=== PATIENT | female | born 1945 | race Caucasian/White ===

== ENCOUNTER 2017-03-19 08:09 | Outpatient (CLI) | payer OTHER ==
[~2017-03-19 08:09] MED LIST: BACL10TA PO; FURO-150 PO; GABA-531 PO; HYDR-1189 PO; LEVO500T20 PO; LIP20 PO; PRED20TA PO; PRO40 PO
== END 2017-03-19 20:48 | disposition home or self-care (01) ==
LOC: SMA 08:09
PROVIDERS: ATTEND Family Medicine
DX: Z12.31 Encounter for screening mammogram for malignant neoplasm of breast (principal)
CPT/HCPCS: G0202

== ENCOUNTER 2018-10-05 07:57 | Outpatient (CLI) | payer OTHER | END 2018-10-05 21:08 | disposition home or self-care (01) | LOC: SMA 07:57 | PROVIDERS: ATTEND Family Medicine | DX: Z12.31 Encounter for screening mammogram for malignant neoplasm of breast (principal) | CPT/HCPCS: 77067 ==

== ENCOUNTER 2019-02-25 16:02 | Inpatient (IN) | payer OTHER ==
[~2019-02-25] VITALS: Ht 154.9 cm; Wt 88.9 kg
[2019-02-25 16:04] VITALS: BP_SYST 157
[2019-02-25] MEDS ORDERED: IPRATROPIUM BROM 0.5 MG/2.5 ML VIAL.NEB (ATROVENT) IH ONE (16:30)
[2019-02-25] MEDS ORDERED: methylPREDNISolone SOD SUCC/PF 62.5 MG/ML VIAL IVP ONE (16:30)
[2019-02-25] MEDS ORDERED: ALBUTEROL SULFATE 0.083% 2.5 MG/3 ML VIAL.NEB IH ONE (16:30)
[2019-02-25] MEDS ORDERED: ALBUTEROL SULFATE 0.083% 2.5 MG/3 ML VIAL.NEB INH ONE (17:08)
[2019-02-25 17:09] LABS: BASOPHILS % (AUTO) 0.5 % (0.0-2.0); EOSINOPHILS % (AUTO) 0.5 % (0.0-4.0); HEMATOCRIT 38.7 % (36-48); HEMOGLOBIN 12.5 g/dL (12.0-16.0); LYMPHOCYTES # (AUTO) 0.9 K/uL (1.0-5.5); LYMPHOCYTES % (AUTO) 13.1 % (20.5-51.5); MEAN CORPUSCULAR HEMOGLOBIN 31 pg (27-31); MEAN CORPUSCULAR HGB CONC 32 % (32-36); MEAN CORPUSCULAR VOLUME 96 fL (79.0-98.0); MONOCYTES # (AUTO) 0.8 K/uL (0.0-1.0); MONOCYTES % (AUTO) 11.5 % (1.7-9.3); NEUTROPHILS % (AUTO) 74.4 % (40.0-70.0); PLATELET COUNT (AUTO) 237 K/uL (130-430); RED BLOOD CELL COUNT(AUTO) 4.05 MIL/uL (4.2-6.2); RED CELL DISTRIBUTION WIDTH 16.2 % (9.0-15.0); WHITE BLOOD COUNT (AUTO) 6.8 K/uL (4.8-10.8)
[2019-02-25 17:12] LABS: ANION GAP 10 (5-15); CALCIUM 9.7 mg/dL (8.4-11.0); CHLORIDE 103 mmol/L (98-107); CREATININE 0.79 mg/dL (0.55-1.30); GLUCOSE 118 mg/dL (70-99); POTASSIUM 3.8 mmol/L (3.5-5.1); SODIUM SERUM 143 mmol/L (136-145); UREA NITROGEN, BLOOD 15 mg/dL (8-21)
[2019-02-25 17:18] LABS: ALANINE AMINOTRANSFERASE 37 U/L (12-78); ALBUMIN 3.8 g/dL (3.4-4.8); ASPARTATE AMINOTRANSFERASE 21 U/L (10-37); TOTAL BILIRUBIN 0.7 mg/dL (0.0-1.0)
[2019-02-25] MEDS ORDERED: FUROSEMIDE 40 MG/4 ML VIAL IVP ONE (17:30)
[2019-02-25] MEDS ORDERED: NITROGLYCERIN 1 INCH (GM) OINT. TP ONE (17:45)
[2019-02-25] MEDS ORDERED: ASPIRIN 81 MG TAB.CHEW PO ONE (17:45)
[2019-02-25] MEDS ORDERED: IOHEXOL 350 mgI/mL, 150 ML INFUS..BTL IV ONE (18:23)
[2019-02-25] MEDS ORDERED: METO25TA6 PO (18:48)
[2019-02-25] MEDS ORDERED: PREG75CA PO (18:53)
[2019-02-25] MEDS ORDERED: HYDROcodone/ACETAMIN 5-325 MG TAB (NORCO/ VICODIN) PO ONE (20:15)
[2019-02-25 20:53] VITALS: BP_SYST 151
[2019-02-25] MEDS ORDERED: POTA10TA15 PO (22:32)
[2019-02-25] MEDS ORDERED: AMLO5TAB4 PO (22:32)
[2019-02-25 23:45] VITALS: BP_SYST 110
[2019-02-26] MEDS ORDERED: cefTRIAXone 1 GM in D5W 50 ML IV SCH (02:30)
[2019-02-26] MEDS ORDERED: ALBUTEROL SULFATE 0.083% 2.5 MG/3 ML VIAL.NEB INH PRN (02:30)
[2019-02-26] MEDS: cefTRIAXone 1 GM in D5W 50 ML IV SCH (05:21)
[2019-02-26] MEDS: methylPREDNISolone SOD SUCC/PF 62.5 MG/ML VIAL IVP SCH ×3 (05:21→21:32)
[2019-02-26] MEDS ORDERED: cefTRIAXone 1 GM IVPB PREMIX 50 ML IV ONE (05:23)
[2019-02-26 08:00] VITALS: BP_SYST 127
[2019-02-26] MEDS: ALBUTEROL SULFATE 0.083% 2.5 MG/3 ML VIAL.NEB INH SCH ×5 (08:27→23:00)
[2019-02-26 09:07] VITALS: BP_SYST 110
[2019-02-26] MEDS ORDERED: ACETAMINOPHEN 325 MG TABLET PO PRN (10:30)
[2019-02-26 11:26] VITALS: BP_SYST 120
[2019-02-26 15:29] VITALS: BP_SYST 138
[2019-02-26] MEDS ORDERED: ENOXAPARIN SODIUM 40 MG/0.4 ML SYRINGE SUBCUT ONE (16:30)
[2019-02-26] MEDS ORDERED: IPRATROPIUM/ALBUTEROL SULFATE 3 ML AMPUL.NEB (DUONEB) INH PRN (16:30)
[2019-02-26] MEDS: HYDROcodone/ACETAMIN 5-325 MG TAB (NORCO/ VICODIN) PO PRN (16:55)
[2019-02-26] MEDS: IPRATROPIUM BROM 0.5 MG/2.5 ML VIAL.NEB (ATROVENT) INH SCH ×2 (19:41→23:00)
[2019-02-26 20:00] VITALS: BP_SYST 164
[2019-02-26] MEDS: METOPROLOL TARTRATE 25 MG TABLET PO SCH (21:29)
[2019-02-27 00:30] VITALS: BP_SYST 160
[2019-02-27] MEDS: HYDROcodone/ACETAMIN 5-325 MG TAB (NORCO/ VICODIN) PO PRN ×2 (02:06→08:56)
[2019-02-27] MEDS: cefTRIAXone 1 GM in D5W 50 ML IV SCH (02:07)
[2019-02-27] MEDS: IPRATROPIUM BROM 0.5 MG/2.5 ML VIAL.NEB (ATROVENT) INH SCH ×3 (03:00→15:27)
[2019-02-27] MEDS: ALBUTEROL SULFATE 0.083% 2.5 MG/3 ML VIAL.NEB INH SCH ×3 (03:00→15:27)
[2019-02-27] MEDS: methylPREDNISolone SOD SUCC/PF 62.5 MG/ML VIAL IVP SCH (05:24)
[2019-02-27 07:34] LABS: ANION GAP 6 (5-15); CALCIUM 9.5 mg/dL (8.4-11.0); CHLORIDE 104 mmol/L (98-107); CREATININE 0.77 mg/dL (0.55-1.30); GLUCOSE 149 mg/dL (70-99); SODIUM SERUM 142 mmol/L (136-145); UREA NITROGEN, BLOOD 19 mg/dL (8-21)
[2019-02-27 07:37] LABS: BASOPHILS % (AUTO) 0.2 % (0.0-2.0); HEMATOCRIT 36.9 % (36-48); HEMOGLOBIN 11.8 g/dL (12.0-16.0); LYMPHOCYTES # (AUTO) 0.5 K/uL (1.0-5.5); LYMPHOCYTES % (AUTO) 4.2 % (20.5-51.5); MEAN CORPUSCULAR HEMOGLOBIN 31 pg (27-31); MEAN CORPUSCULAR HGB CONC 32 % (32-36); MEAN CORPUSCULAR VOLUME 96 fL (79.0-98.0); MONOCYTES # (AUTO) 0.9 K/uL (0.0-1.0); MONOCYTES % (AUTO) 7.2 % (1.7-9.3); NEUTROPHILS # (AUTO) 11.1 K/uL (1.8-7.7); PLATELET COUNT (AUTO) 247 K/uL (130-430); RED BLOOD CELL COUNT(AUTO) 3.84 MIL/uL (4.2-6.2); RED CELL DISTRIBUTION WIDTH 16.4 % (9.0-15.0); WHITE BLOOD COUNT (AUTO) 12.6 K/uL (4.8-10.8)
[2019-02-27 08:00] VITALS: BP_SYST 147
[2019-02-27 08:39] LABS: NEUTROPHILS % (AUTO) 88.4 % (40.0-70.0)
[2019-02-27] MEDS: METOPROLOL TARTRATE 25 MG TABLET PO SCH (08:57)
[2019-02-27] MEDS ORDERED: POTASSIUM CHLORIDE 10 MEQ TAB.PRT.SR PO SCH (09:00)
[2019-02-27] MEDS ORDERED: FUROSEMIDE 20 MG TABLET PO SCH (09:00)
[2019-02-27] MEDS ORDERED: ENOXAPARIN SODIUM 40 MG/0.4 ML SYRINGE SUBCUT SCH (09:00)
[2019-02-27] MEDS ORDERED: amLODIPine BESYLATE 5 MG TABLET PO SCH (09:00)
[2019-02-27] MEDS ORDERED: BUDE6HFA INH (10:34)
[2019-02-27] MEDS ORDERED: DOXY100T2 PO (10:34)
[2019-02-27] MEDS ORDERED: ALBMDI INH (10:36)
[2019-02-27 11:17] VITALS: BP_SYST 147
[2019-02-28] MEDS ORDERED: PREDNISONE 20 MG TABLET PO SCH (08:00)
== END 2019-02-27 11:44 | disposition home or self-care (01) | DRG 189 ==
LOC: SED 16:02 → STU 20:25
PROVIDERS: ADMIT Internal Medicine Hospice and Palliative Medicine; ATTEND Internal Medicine Hospice and Palliative Medicine
DX: J96.20 Acute and chronic respiratory failure, unspecified whether with hypoxia or hypercapnia (principal); J44.1 Chronic obstructive pulmonary disease with (acute) exacerbation; E66.01 Morbid (severe) obesity due to excess calories; E78.5 Hyperlipidemia, unspecified; I11.0 Hypertensive heart disease with heart failure; I50.9 Heart failure, unspecified; J61 Pneumoconiosis due to asbestos and other mineral fibers; M35.3 Polymyalgia rheumatica; Z79.52 Long term (current) use of systemic steroids; Z83.3 Family history of diabetes mellitus; Z85.41 Personal history of malignant neoplasm of cervix uteri; Z86.718 Personal history of other venous thrombosis and embolism; Z87.891 Personal history of nicotine dependence; Z90.710 Acquired absence of both cervix and uterus; Z99.81 Dependence on supplemental oxygen; Z88.1 Allergy status to other antibiotic agents; Z79.899 Other long term (current) drug therapy; Z68.37 Body mass index [BMI] 37.0-37.9, adult
CPT/HCPCS: 36415; 36600; 71045; 71275; 80048; 80053; 82803-TC; 83880; 84484; 85025; 85379; 93005; 93970; 94640; 94760; 96374; 96375; 99285; G0378; J0696; J1650; J1940; J2930; J7060; J7613; Q9967

== ENCOUNTER 2019-06-28 13:06 | Inpatient (IN) | payer OTHER ==
[~2019-06-28] VITALS: Ht 154.9 cm; Wt 86.6 kg
[~2019-06-28 13:06] MED LIST changes: +ALBMDI INH; +AMLO5TAB4 PO; +APIX5TAB4 PO; -BACL10TA PO; +BUDE6HFA INH; +DOXY100T2 PO; -GABA-531 PO; +HYDR-4272 PO; -LEVO500T20 PO; +LEVO750T45 PO; +LIP40 PO; +METO25TA6 PO; +POTA10TA15 PO; +PRED5TAB PO; +PREG75CA PO; +SPIRIVA INH
[2019-06-28 13:24] VITALS: BP_SYST 152
[2019-06-28 13:41] LABS: BASOPHILS # (AUTO) 0.1 K/uL (0.0-0.2); BASOPHILS % (AUTO) 0.6 % (0.0-2.0); EOSINOPHILS % (AUTO) 0.1 % (0.0-4.0); HEMATOCRIT 37.7 % (36-48); HEMOGLOBIN 12.3 g/dL (12.0-16.0); LYMPHOCYTES # (AUTO) 0.8 K/uL (1.0-5.5); LYMPHOCYTES % (AUTO) 7.7 % (20.5-51.5); MEAN CORPUSCULAR HEMOGLOBIN 32 pg (27-31); MEAN CORPUSCULAR HGB CONC 33 % (32-36); MEAN CORPUSCULAR VOLUME 98 fL (79.0-98.0); MONOCYTES # (AUTO) 0.8 K/uL (0.0-1.0); MONOCYTES % (AUTO) 7.4 % (1.7-9.3); NEUTROPHILS # (AUTO) 9.1 K/uL (1.8-7.7); NEUTROPHILS % (AUTO) 84.2 % (40.0-70.0); PLATELET COUNT (AUTO) 297 K/uL (130-430); RED BLOOD CELL COUNT(AUTO) 3.84 MIL/uL (4.2-6.2); RED CELL DISTRIBUTION WIDTH 16.4 % (9.0-15.0); WHITE BLOOD COUNT (AUTO) 10.8 K/uL (4.8-10.8)
[2019-06-28 13:43] LABS: ANION GAP 6 (5-15); CALCIUM 9.3 mg/dL (8.4-11.0); CHLORIDE 103 mmol/L (98-107); GLUCOSE 149 mg/dL (70-99); POTASSIUM 3.9 mmol/L (3.5-5.1); SODIUM SERUM 139 mmol/L (136-145); UREA NITROGEN, BLOOD 19 mg/dL (8-21)
[2019-06-28] MEDS ORDERED: DILTIAZEM HCL 25 MG/5 ML VIAL IVP ONE ×2 (13:45→14:30)
[2019-06-28 13:49] LABS: ALANINE AMINOTRANSFERASE 135 U/L (12-78); ALBUMIN 3.7 g/dL (3.4-4.8); ASPARTATE AMINOTRANSFERASE 78 U/L (10-37); TOTAL BILIRUBIN 0.6 mg/dL (0.0-1.0)
[2019-06-28 15:19] LABS: BILIRUBIN,URINE NEGATIVE (NEGATIVE); BLOOD, URINE NEGATIVE (NEGATIVE); CLARITY/URINE CLEAR (CLEAR); COLOR,URINE YELLOW (YELLOW); GLUCOSE,URINE NEGATIVE (NEGATIVE); KETONES,URINE NEGATIVE (NEGATIVE); LEUKOCYTE ESTERASE ,URINE NEGATIVE (NEGATIVE); NITRITE, URINE NEGATIVE (NEGATIVE); PH,URINE 6.5 (5.0-8.0); PROTEIN URINE NEGATIVE (NEGATIVE); UROBILINOGEN,URINE 0.2 (0.2-1.0)
[2019-06-28 16:02] VITALS: BP_SYST 151
[2019-06-28] MEDS ORDERED: FUROSEMIDE 20 MG/2 ML VIAL IVP ONE (17:30)
[2019-06-28] MEDS ORDERED: IPRATROPIUM BROM 0.5 MG/2.5 ML VIAL.NEB (ATROVENT) INH PRN (17:30)
[2019-06-28] MEDS ORDERED: methylPREDNISolone SOD SUCC 40 MG/ML VIAL IVP ONE (17:30)
[2019-06-28] MEDS ORDERED: ALBUTEROL SULFATE 0.083% 2.5 MG/3 ML VIAL.NEB INH PRN (17:30)
[2019-06-28] MEDS: DILTIAZEM HCL 25 MG/5 ML VIAL IVP PRN (18:06)
[2019-06-28 18:57] VITALS: BP_SYST 151
[2019-06-28] MEDS: ALBUTEROL SULFATE 0.083% 2.5 MG/3 ML VIAL.NEB INH SCH (19:38)
[2019-06-28] MEDS: IPRATROPIUM BROM 0.5 MG/2.5 ML VIAL.NEB (ATROVENT) INH SCH (19:38)
[2019-06-28] MEDS: METOPROLOL TARTRATE 25 MG TABLET PO SCH (21:00)
[2019-06-28] MEDS: methylPREDNISolone SOD SUCC 40 MG/ML VIAL IVP SCH (21:00)
[2019-06-28] MEDS: FUROSEMIDE 20 MG/2 ML VIAL IVP SCH (22:49)
[2019-06-28 23:05] VITALS: BP_SYST 166
[2019-06-29] VITALS: BP_SYST 152
[2019-06-29] MEDS: DILTIAZEM HCL 25 MG/5 ML VIAL IVP PRN ×2 (03:43→09:05)
[2019-06-29 04:00] VITALS: BP_SYST 99
[2019-06-29] MEDS: IPRATROPIUM BROM 0.5 MG/2.5 ML VIAL.NEB (ATROVENT) INH SCH ×3 (07:51→19:42)
[2019-06-29] MEDS: ALBUTEROL SULFATE 0.083% 2.5 MG/3 ML VIAL.NEB INH SCH ×2 (07:51→11:17)
[2019-06-29 07:54] VITALS: BP_SYST 114
[2019-06-29] MEDS: PREGABALIN 75 MG CAPSULE (LYRICA) PO SCH (08:22)
[2019-06-29] MEDS: METOPROLOL TARTRATE 25 MG TABLET PO SCH ×2 (08:22→21:20)
[2019-06-29] MEDS: ATORVASTATIN 20 MG TABLET PO SCH (08:22)
[2019-06-29] MEDS: PANTOPRAZOLE SODIUM 40 MG TAB PO SCH (08:22)
[2019-06-29] MEDS: POTASSIUM CHLORIDE 10 MEQ TAB.PRT.SR PO SCH (08:23)
[2019-06-29] MEDS: methylPREDNISolone SOD SUCC 40 MG/ML VIAL IVP SCH ×2 (08:23→21:21)
[2019-06-29] MEDS: FUROSEMIDE 20 MG/2 ML VIAL IVP SCH ×2 (08:23→21:21)
[2019-06-29] MEDS ORDERED: DILTIAZEM HCL 25 MG/5 ML VIAL IVP ONE (09:15)
[2019-06-29] MEDS: HYDROcodone/ACETAMIN 5-325 MG TAB (NORCO/ VICODIN) PO PRN ×2 (10:41→16:31)
[2019-06-29] MEDS ORDERED: APIXABAN 2.5 MG TABLET PO ONE (12:15)
[2019-06-29] MEDS ORDERED: DILTIAZEM HCL 60 MG TABLET PO ONE (12:15)
[2019-06-29 12:42] VITALS: BP_SYST 133
[2019-06-29 16:09] VITALS: BP_SYST 119
[2019-06-29] MEDS: LevALBUTEROL HCL 1.25 MG/0.5 ML *CONC.* VIAL.NEB (XOPENEX CONC.) INH SCH (19:43)
[2019-06-29 20:00] VITALS: BP_SYST 124
[2019-06-29] MEDS: APIXABAN 2.5 MG TABLET PO SCH (21:17)
[2019-06-29] MEDS: DILTIAZEM HCL 60 MG TABLET PO SCH (21:19)
[2019-06-30] VITALS: BP_SYST 146
[2019-06-30] MEDS: IPRATROPIUM BROM 0.5 MG/2.5 ML VIAL.NEB (ATROVENT) INH SCH ×4 (01:00→19:26)
[2019-06-30] MEDS: LevALBUTEROL HCL 1.25 MG/0.5 ML *CONC.* VIAL.NEB (XOPENEX CONC.) INH SCH ×4 (01:00→19:26)
[2019-06-30] MEDS: HYDROcodone/ACETAMIN 5-325 MG TAB (NORCO/ VICODIN) PO PRN ×3 (01:10→16:30)
[2019-06-30] MEDS: DILTIAZEM HCL 60 MG TABLET PO SCH ×3 (06:14→21:04)
[2019-06-30 07:26] LABS: BASOPHILS % (AUTO) 0.3 % (0.0-2.0); HEMATOCRIT 37.2 % (36-48); HEMOGLOBIN 12.2 g/dL (12.0-16.0); LYMPHOCYTES # (AUTO) 0.5 K/uL (1.0-5.5); LYMPHOCYTES % (AUTO) 3.6 % (20.5-51.5); MEAN CORPUSCULAR HEMOGLOBIN 32 pg (27-31); MEAN CORPUSCULAR HGB CONC 33 % (32-36); MEAN CORPUSCULAR VOLUME 99 fL (79.0-98.0); MONOCYTES # (AUTO) 0.9 K/uL (0.0-1.0); NEUTROPHILS # (AUTO) 11.3 K/uL (1.8-7.7); NEUTROPHILS % (AUTO) 89.1 % (40.0-70.0); PLATELET COUNT (AUTO) 288 K/uL (130-430); RED BLOOD CELL COUNT(AUTO) 3.78 MIL/uL (4.2-6.2); RED CELL DISTRIBUTION WIDTH 16.1 % (9.0-15.0); WHITE BLOOD COUNT (AUTO) 12.7 K/uL (4.8-10.8)
[2019-06-30 07:44] LABS: ANION GAP 6 (5-15); CHLORIDE 98 mmol/L (98-107); CREATININE 1.01 mg/dL (0.55-1.30); GLUCOSE 199 mg/dL (70-99); POTASSIUM 4.1 mmol/L (3.5-5.1); SODIUM SERUM 138 mmol/L (136-145); UREA NITROGEN, BLOOD 30 mg/dL (8-21)
[2019-06-30 09:56] VITALS: BP_SYST 152
[2019-06-30] MEDS: ATORVASTATIN 20 MG TABLET PO SCH (10:02)
[2019-06-30] MEDS: APIXABAN 2.5 MG TABLET PO SCH ×2 (10:03→20:53)
[2019-06-30] MEDS: POTASSIUM CHLORIDE 10 MEQ TAB.PRT.SR PO SCH (10:03)
[2019-06-30] MEDS: PANTOPRAZOLE SODIUM 40 MG TAB PO SCH (10:03)
[2019-06-30] MEDS: PREGABALIN 75 MG CAPSULE (LYRICA) PO SCH (10:03)
[2019-06-30] MEDS: METOPROLOL TARTRATE 25 MG TABLET PO SCH ×2 (10:03→20:53)
[2019-06-30] MEDS: methylPREDNISolone SOD SUCC 40 MG/ML VIAL IVP SCH ×2 (10:04→20:55)
[2019-06-30] MEDS: FUROSEMIDE 20 MG/2 ML VIAL IVP SCH ×2 (10:04→20:55)
[2019-06-30 11:23] VITALS: BP_SYST 137
[2019-06-30 15:55] VITALS: BP_SYST 116
[2019-06-30 20:00] VITALS: BP_SYST 136
[2019-07-01 00:17] VITALS: BP_SYST 132
[2019-07-01] MEDS: IPRATROPIUM BROM 0.5 MG/2.5 ML VIAL.NEB (ATROVENT) INH SCH ×4 (00:44→19:00)
[2019-07-01] MEDS: LevALBUTEROL HCL 1.25 MG/0.5 ML *CONC.* VIAL.NEB (XOPENEX CONC.) INH SCH ×4 (00:45→19:00)
[2019-07-01] MEDS: DILTIAZEM HCL 60 MG TABLET PO SCH ×3 (06:04→22:00)
[2019-07-01] MEDS: HYDROcodone/ACETAMIN 5-325 MG TAB (NORCO/ VICODIN) PO PRN ×2 (06:34→15:00)
[2019-07-01 07:46] LABS: ANION GAP 4 (5-15); CALCIUM 8.9 mg/dL (8.4-11.0); CHLORIDE 100 mmol/L (98-107); CREATININE 0.92 mg/dL (0.55-1.30); GLUCOSE 210 mg/dL (70-99); POTASSIUM 4.3 mmol/L (3.5-5.1); SODIUM SERUM 139 mmol/L (136-145); UREA NITROGEN, BLOOD 28 mg/dL (8-21)
[2019-07-01 08:20] VITALS: BP_SYST 120
[2019-07-01] MEDS: POTASSIUM CHLORIDE 10 MEQ TAB.PRT.SR PO SCH (09:14)
[2019-07-01] MEDS: methylPREDNISolone SOD SUCC 40 MG/ML VIAL IVP SCH ×2 (09:14→20:25)
[2019-07-01] MEDS: FUROSEMIDE 20 MG/2 ML VIAL IVP SCH ×2 (09:14→20:24)
[2019-07-01] MEDS: ATORVASTATIN 20 MG TABLET PO SCH (09:15)
[2019-07-01] MEDS: METOPROLOL TARTRATE 25 MG TABLET PO SCH ×2 (09:15→20:25)
[2019-07-01] MEDS: PREGABALIN 75 MG CAPSULE (LYRICA) PO SCH (09:15)
[2019-07-01] MEDS: PANTOPRAZOLE SODIUM 40 MG TAB PO SCH (09:15)
[2019-07-01] MEDS: APIXABAN 2.5 MG TABLET PO SCH ×2 (09:16→20:26)
[2019-07-01 12:00] VITALS: BP_SYST 114
[2019-07-01 12:08] VITALS: BP_SYST 114
[2019-07-01] MEDS ORDERED: NYSTATIN 500,000 UNITS/5 ML UDC PO ONE (15:30)
[2019-07-01] MEDS ORDERED: FLUCONAZOLE 100 mg/ NS 50 ML IV SCH (16:00)
[2019-07-01] MEDS: NYSTATIN 500,000 UNITS/5 ML UDC PO SCH (17:30)
[2019-07-01 17:53] VITALS: BP_SYST 125
[2019-07-01 19:56] VITALS: BP_SYST 141
[2019-07-02] VITALS: BP_SYST 155
[2019-07-02] MEDS: LevALBUTEROL HCL 1.25 MG/0.5 ML *CONC.* VIAL.NEB (XOPENEX CONC.) INH SCH ×2 (01:00→07:00)
[2019-07-02] MEDS: IPRATROPIUM BROM 0.5 MG/2.5 ML VIAL.NEB (ATROVENT) INH SCH ×2 (01:00→07:00)
[2019-07-02] MEDS ORDERED: HYDROcodone/ACETAMIN 5-325 MG TAB (NORCO/ VICODIN) PO SCH (02:00)
[2019-07-02] MEDS: NYSTATIN 500,000 UNITS/5 ML UDC PO SCH ×3 (05:57→12:05)
[2019-07-02] MEDS: DILTIAZEM HCL 60 MG TABLET PO SCH ×2 (05:58→14:14)
[2019-07-02 07:37] LABS: ANION GAP 7 (5-15); CALCIUM 8.1 mg/dL (8.4-11.0); CHLORIDE 97 mmol/L (98-107); GLUCOSE 191 mg/dL (70-99); POTASSIUM 4.6 mmol/L (3.5-5.1); SODIUM SERUM 137 mmol/L (136-145); UREA NITROGEN, BLOOD 29 mg/dL (8-21)
[2019-07-02 08:00] VITALS: BP_SYST 123
[2019-07-02] MEDS: methylPREDNISolone SOD SUCC 40 MG/ML VIAL IVP SCH (08:23)
[2019-07-02] MEDS: PREGABALIN 75 MG CAPSULE (LYRICA) PO SCH (08:24)
[2019-07-02] MEDS: PANTOPRAZOLE SODIUM 40 MG TAB PO SCH (08:24)
[2019-07-02] MEDS: ATORVASTATIN 20 MG TABLET PO SCH (08:24)
[2019-07-02] MEDS: POTASSIUM CHLORIDE 10 MEQ TAB.PRT.SR PO SCH (08:24)
[2019-07-02] MEDS: FUROSEMIDE 20 MG/2 ML VIAL IVP SCH (08:24)
[2019-07-02] MEDS: METOPROLOL TARTRATE 25 MG TABLET PO SCH (08:25)
[2019-07-02] MEDS: APIXABAN 2.5 MG TABLET PO SCH (08:26)
[2019-07-02] MEDS ORDERED: AMOX-426 PO (09:35)
[2019-07-02] MEDS ORDERED: PRED20TA PO (09:35)
[2019-07-02] MEDS: HYDROcodone/ACETAMIN 5-325 MG TAB (NORCO/ VICODIN) PO PRN (12:10)
[2019-07-02 14:14] VITALS: BP_SYST 135
[2019-07-02] MEDS ORDERED: FLUC150T PO (14:57)
[2019-07-02] MEDS ORDERED: DILT180C67 PO (14:57)
[2019-07-02 15:11] VITALS: BP_SYST 135
[2019-07-02 16:00] VITALS: BP_SYST 135
== END 2019-07-02 16:47 | disposition home or self-care (01) | DRG 196 ==
LOC: SED 13:06 → STU 15:19 → MERGE 15:19 → STU 16:00
PROVIDERS: ADMIT Internal Medicine Hospice and Palliative Medicine; ATTEND Internal Medicine Hospice and Palliative Medicine
DX: J61 Pneumoconiosis due to asbestos and other mineral fibers (principal); J96.21 Acute and chronic respiratory failure with hypoxia; B37.0 Candidal stomatitis; J44.1 Chronic obstructive pulmonary disease with (acute) exacerbation; I48.19 Other persistent atrial fibrillation; I50.30 Unspecified diastolic (congestive) heart failure; I11.0 Hypertensive heart disease with heart failure; E66.9 Obesity, unspecified; E78.5 Hyperlipidemia, unspecified; I87.2 Venous insufficiency (chronic) (peripheral); M35.3 Polymyalgia rheumatica; Z77.090 Contact with and (suspected) exposure to asbestos; Z79.52 Long term (current) use of systemic steroids; Z83.3 Family history of diabetes mellitus; Z85.41 Personal history of malignant neoplasm of cervix uteri; Z86.718 Personal history of other venous thrombosis and embolism; Z87.891 Personal history of nicotine dependence; Z90.710 Acquired absence of both cervix and uterus; Z99.81 Dependence on supplemental oxygen; Z68.36 Body mass index [BMI] 36.0-36.9, adult; Z88.1 Allergy status to other antibiotic agents; Z79.899 Other long term (current) drug therapy
CPT/HCPCS: 36415; 36600; 71045; 80048; 80053; 81003; 82550-TC; 82803-TC; 83880; 84484; 85025; 93005; 94640; 94760; 96374; 96376; 99285; G0378; J1030; J1450; J1940; J3490; J7612; J7613

== ENCOUNTER 2019-07-30 10:46 | Inpatient (IN) | payer OTHER ==
[~2019-07-30] VITALS: Ht 154.9 cm; Wt 86.2 kg
[2019-07-30 10:46] VITALS: BP_SYST 148
[~2019-07-30 10:46] MED LIST changes: +AMOX-426 PO; +DILT180C67 PO; +FLUC150T PO; -LEVO750T45 PO; -PRED5TAB PO
--- NOTE | 2019-07-30 10:57 | NUR ---
BROUGHT BACK TO BED #4, PLACED IN ROOM, REPORT GIVEN TO MATIAS
--- NOTE | 2019-07-30 10:58 | NUR ---
Patient arrived in the ED c/o shortness of breath with dizziness that's progressively getting worse. Denied any recent trauma or falls. Denied any chest pain. Patient is alert and oriented x4, BLL diminished lung sounds, speaking in full sentences, and ambulating with a walker. Patient is on Oxygen 2LPM. VSS, pain level 0/10. Informed of the wait time. Instructed to notify ED staff for any changes in condition or worsening of symptoms. Patient verbalized understanding.
--- NOTE | 2019-07-30 11:00 | NUR ---
ECG done at bedside as ordered by Dr. Hilton. Patient tolerated the procedure well. Report given to .
--- NOTE | 2019-07-30 11:05 | NUR ---
ER Dr. Hilton at bedside examining patient.
[2019-07-30] MEDS ORDERED: NS 500 ML IV ONE (11:15)
[2019-07-30] MEDS ORDERED: IPRATROPIUM/ALBUTEROL SULFATE 3 ML AMPUL.NEB (DUONEB) INH ONE (11:15)
[2019-07-30] MEDS ORDERED: PIPERACILLIN/TAZO 3.375 GM in NS 50 ML IV ONE (11:45)
[2019-07-30 11:54] LABS: BILIRUBIN,URINE NEGATIVE (NEGATIVE); BLOOD, URINE NEGATIVE (NEGATIVE); CLARITY/URINE CLEAR (CLEAR); COLOR,URINE YELLOW (YELLOW); GLUCOSE,URINE NEGATIVE (NEGATIVE); KETONES,URINE NEGATIVE (NEGATIVE); LEUKOCYTE ESTERASE ,URINE NEGATIVE (NEGATIVE); NITRITE, URINE NEGATIVE (NEGATIVE); PH,URINE 7.5 (5.0-8.0); PROTEIN URINE NEGATIVE (NEGATIVE); UROBILINOGEN,URINE 0.2 (0.2-1.0)
[2019-07-30] MEDS ORDERED: PIPERACILLIN/TAZOBACTAM 3.375 GM/VIAL (ZOSYN) IV ONE (12:10)
[2019-07-30 12:11] LABS: BASOPHILS # (AUTO) 0.1 K/uL (0.0-0.2); BASOPHILS % (AUTO) 0.8 % (0.0-2.0); EOSINOPHILS % (AUTO) 0.3 % (0.0-4.0); HEMATOCRIT 38.5 % (36-48); HEMOGLOBIN 12.7 g/dL (12.0-16.0); LYMPHOCYTES # (AUTO) 0.6 K/uL (1.0-5.5); LYMPHOCYTES % (AUTO) 5.8 % (20.5-51.5); MEAN CORPUSCULAR HEMOGLOBIN 32 pg (27-31); MEAN CORPUSCULAR HGB CONC 33 % (32-36); MEAN CORPUSCULAR VOLUME 98 fL (79.0-98.0); MONOCYTES # (AUTO) 0.6 K/uL (0.0-1.0); NEUTROPHILS % (AUTO) 87.1 % (40.0-70.0); PLATELET COUNT (AUTO) 303 K/uL (130-430); RED BLOOD CELL COUNT(AUTO) 3.93 MIL/uL (4.2-6.2); WHITE BLOOD COUNT (AUTO) 10.3 K/uL (4.8-10.8)
[2019-07-30 12:23] LABS: ANION GAP 5 (5-15); CALCIUM 8.3 mg/dL (8.4-11.0); CHLORIDE 97 mmol/L (98-107); CREATININE 0.83 mg/dL (0.55-1.30); GLUCOSE 168 mg/dL (70-99); POTASSIUM 3.9 mmol/L (3.5-5.1); SODIUM SERUM 137 mmol/L (136-145); UREA NITROGEN, BLOOD 12 mg/dL (8-21)
[2019-07-30 12:32] LABS: ALANINE AMINOTRANSFERASE 49 U/L (12-78); ALBUMIN 3.8 g/dL (3.4-4.8); ASPARTATE AMINOTRANSFERASE 27 U/L (10-37); TOTAL BILIRUBIN 0.6 mg/dL (0.0-1.0)
[2019-07-30 12:34] LABS: PROTHROMBIN TIME 10.2 SECS (9.5-12.5)
--- NOTE | 2019-07-30 14:30 | NUR ---
Patient stated there are no medication changes since the last hospitalization.
[2019-07-30] MEDS ORDERED: NACL 0.9% 2,200 ML IV ONE (14:45)
--- NOTE | 2019-07-30 15:56 | NUR ---
ADMISSION NOTE Received patient from ER via anabell, received report from DEEPAK TOLEDO. Patient admitted with diagnosis of COPD EXACERBATION. Patient oriented to hospital routine, call light, toileting and safety-patient verbalized understanding.
[2019-07-30] MEDS ORDERED: IPRATROPIUM BROM 0.5 MG/2.5 ML VIAL.NEB (ATROVENT) INH PRN (16:00)
[2019-07-30] MEDS ORDERED: LevALBUTEROL HCL 1.25 MG/0.5 ML *CONC.* VIAL.NEB (XOPENEX CONC.) INH PRN (16:00)
--- NOTE | 2019-07-30 16:00 | NUR ---
Patient will be admitted to care of Dr. Amaya. Admitted to Telemetry unit. Will go to room 135. Belongings list completed. Complete and up to date summary report printed. SBAR report given to TRE Palacios at bedside with opportunity for questions.
--- NOTE | 2019-07-30 16:00 | NUR ---
Initial Notes: Received patient in the room from Er. Initial assessment done. No sob this time. On o2 2l/nc,good saturation. Iv saline lock at right forearm in place.On telemetry,
[2019-07-30 16:17] VITALS: BP_SYST 160
[2019-07-30 16:29] VITALS: BP_SYST 148
[2019-07-30 16:33] VITALS: BP_SYST 148
[2019-07-30] MEDS: LEVOFLOXACIN 500 MG/D5W 100 ML IV SCH (16:45)
--- NOTE | 2019-07-30 16:45 | NUR ---
Iv Levaquin: Iv Levaquin given as ordered,with no problem.
--- NOTE | 2019-07-30 18:40 | NUR ---
closing notes: Not in any distress. Call light with in reach. Bed locked at lowest position.Safety measures rendered. Continue to monitor.
[2019-07-30] MEDS: LevALBUTEROL HCL 1.25 MG/0.5 ML *CONC.* VIAL.NEB (XOPENEX CONC.) INH SCH (19:41)
[2019-07-30] MEDS: IPRATROPIUM BROM 0.5 MG/2.5 ML VIAL.NEB (ATROVENT) INH SCH (19:41)
[2019-07-30 20:00] VITALS: BP_SYST 127
--- NOTE | 2019-07-30 21:42 | NUR ---
CONSULTATION PAGED/CALLED Reason for Consultation: COPD EXACERBATION Person Who was Notified: DOCTOR TANI IS AWARE AND SEEN THE PT Consulting Physician: TANI Insurance Claim Approver Specialty: Ordering Physician: RENITA
[2019-07-30] MEDS: APIXABAN 2.5 MG TABLET PO SCH (22:08)
[2019-07-30] MEDS: METOPROLOL TARTRATE 25 MG TABLET PO SCH (22:12)
[2019-07-30] MEDS: methylPREDNISolone SOD SUCC/PF 62.5 MG/ML VIAL IVP SCH (22:13)
[2019-07-30] MEDS: FUROSEMIDE 40 MG/4 ML VIAL IVP SCH (22:14)
[2019-07-31] MEDS: LevALBUTEROL HCL 1.25 MG/0.5 ML *CONC.* VIAL.NEB (XOPENEX CONC.) INH SCH ×4 (00:47→19:00)
[2019-07-31] MEDS: IPRATROPIUM BROM 0.5 MG/2.5 ML VIAL.NEB (ATROVENT) INH SCH ×4 (00:47→19:00)
--- NOTE | 2019-07-31 06:00 | NUR ---
PT REMAIN ON O2 2 LITERS N/C .PT STILL REMAIN ON 2 LITER O2 N/C .
[2019-07-31 06:34] LABS: BASOPHILS % (AUTO) 0.2 % (0.0-2.0); HEMATOCRIT 41.4 % (36-48); HEMOGLOBIN 13.4 g/dL (12.0-16.0); LYMPHOCYTES # (AUTO) 0.4 K/uL (1.0-5.5); LYMPHOCYTES % (AUTO) 4.3 % (20.5-51.5); MEAN CORPUSCULAR HEMOGLOBIN 32 pg (27-31); MEAN CORPUSCULAR HGB CONC 32 % (32-36); MEAN CORPUSCULAR VOLUME 98 fL (79.0-98.0); MONOCYTES # (AUTO) 0.3 K/uL (0.0-1.0); NEUTROPHILS # (AUTO) 8.2 K/uL (1.8-7.7); NEUTROPHILS % (AUTO) 92.5 % (40.0-70.0); PLATELET COUNT (AUTO) 333 K/uL (130-430); RED BLOOD CELL COUNT(AUTO) 4.25 MIL/uL (4.2-6.2); RED CELL DISTRIBUTION WIDTH 16.9 % (9.0-15.0); WHITE BLOOD COUNT (AUTO) 8.8 K/uL (4.8-10.8)
[2019-07-31 06:44] LABS: ALANINE AMINOTRANSFERASE 55 U/L (12-78); ALBUMIN 3.8 g/dL (3.4-4.8); ANION GAP 8 (5-15); ASPARTATE AMINOTRANSFERASE 25 U/L (10-37); CALCIUM 9.9 mg/dL (8.4-11.0); CHLORIDE 90 mmol/L (98-107); CREATININE 0.97 mg/dL (0.55-1.30); GLUCOSE 210 mg/dL (70-99); POTASSIUM 3.8 mmol/L (3.5-5.1); SODIUM SERUM 135 mmol/L (136-145); TOTAL BILIRUBIN 0.8 mg/dL (0.0-1.0); UREA NITROGEN, BLOOD 12 mg/dL (8-21)
[2019-07-31] MEDS: methylPREDNISolone SOD SUCC/PF 62.5 MG/ML VIAL IVP SCH ×3 (06:44→22:46)
--- NOTE | 2019-07-31 08:00 | NUR ---
received pt in bed, pt is aaox4, c/o back pain 11/18, inform pt that i will call md for pain medications. safety precaution in place , call light in reach. encouraged pt to call for assist. will cont to monitor.
--- NOTE | 2019-07-31 08:23 | NUR ---
ATTENDING MD DR MARAVILLA WAS CALLED RE: PAIN MEDS. SPOKE TO MECHELLE.
[2019-07-31] MEDS: METOPROLOL TARTRATE 25 MG TABLET PO SCH ×2 (08:26→20:42)
[2019-07-31] MEDS: APIXABAN 2.5 MG TABLET PO SCH ×2 (08:29→20:43)
[2019-07-31] MEDS: FUROSEMIDE 40 MG/4 ML VIAL IVP SCH ×2 (08:30→20:41)
--- NOTE | 2019-07-31 09:27 | NUR ---
CONSULTATION PAGED/CALLED Reason for Consultation: [] RAPID HR (150 - 160), AFIBB WITH RVR Person Who was Notified: [] Consulting Physician: [] DR BAKER Nurse Transitional Specialty: [] FINISHER TAILOR APPRENTICE Ordering Physician: [] DR Selin BRIGGS Addendum: 07/31/19 at 0934 by Amy Aparicio [place]/ PERSON WHO WAS NOTIFIED: MECHELLE
[2019-07-31] MEDS ORDERED: DIGOXIN 0.5 MG/2 ML AMP IVP ONE (09:30)
[2019-07-31] MEDS: HYDROcodone/ACETAMIN 5-325 MG TAB (NORCO/ VICODIN) PO PRN ×3 (10:13→22:47)
[2019-07-31] MEDS: DILTIAZEM HCL 25 MG/5 ML VIAL IVP PRN ×2 (10:15→16:24)
[2019-07-31] MEDS: CLOTRIMAZOLE 10 MG TROCHE MM SCH ×3 (10:17→14:13)
[2019-07-31 12:17] VITALS: BP_SYST 146
[2019-07-31] MEDS ORDERED: MAGNESIUM SULFATE 50 ML IV ONE (15:00)
[2019-07-31] MEDS: LEVOFLOXACIN 500 MG/D5W 100 ML IV SCH (15:24)
[2019-07-31 16:30] VITALS: BP_SYST 159
[2019-07-31] MEDS: NYSTATIN 500,000 UNITS/5 ML UDC PO SCH ×2 (18:21→23:30)
--- NOTE | 2019-07-31 18:23 | NUR ---
PLS DISREGARD CONSULT TO DR BAKER...WRONG CARDIO CONSULT DUE TO INSURANCE.. DR [employer].
--- NOTE | 2019-07-31 18:24 | NUR ---
CONSULTATION PAGED/CALLED Reason for Consultation: [] RAPID HR ( 150 - 160) Person Who was Notified: [] MOON Consulting Physician: [] DR BABIN Market Consultant Specialty: [] CARDIOLOGY Ordering Physician: [] DR Selin BRIGGS
--- NOTE | 2019-07-31 19:02 | NUR ---
pt has been tachycardic the whole shift, with heart rate going up to 160's specially when pt ambulates to bathroom, pt denies dizziness, nausea or heart palpitation, pt given cardizem but to know avail, followed up consult with dr beach. will endorse to night nurse.
--- NOTE | 2019-07-31 19:25 | NUR ---
Opening Note Received bedside SBAR report from TRE Zheng. Patient is awake, AOx4 resting in bed. Nonlabored breathing on 2L NC. IV is SL to LAC. Bed is locked in lowest position and call light w/in reach. Updated board and reviewed plan of care.
[2019-07-31 20:00] VITALS: BP_SYST 151
--- NOTE | 2019-07-31 20:51 | NUR ---
Medications Due medications given, educated on side effects and she verbalized understanding. She sat up w/ legs dangle to take meds and swallowed tablets w/out difficulty. She returned to lying in bed and requested lights out.
--- NOTE | 2019-07-31 22:58 | NUR ---
c/o pain Patient reporting back pain and administered Rincon for moderate pain as ordered. Patient has been voiding, she denies dizziness.
[2019-08-01] VITALS: BP_SYST 126
--- NOTE | 2019-08-01 00:15 | NUR ---
Resting Patient is resting in side posture, w/ eyes closed. No s/sx of distress, nonlabored breathing. Call light w/in reach, will continue to monitor.
[2019-08-01] MEDS: IPRATROPIUM BROM 0.5 MG/2.5 ML VIAL.NEB (ATROVENT) INH SCH ×4 (01:00→20:38)
[2019-08-01] MEDS: LevALBUTEROL HCL 1.25 MG/0.5 ML *CONC.* VIAL.NEB (XOPENEX CONC.) INH SCH ×4 (01:00→20:38)
--- NOTE | 2019-08-01 02:06 | NUR ---
Rounds Patient is sleeping, symmetrical rise and fall of chest, nonlabored breathing. Call light w/in reach.
--- NOTE | 2019-08-01 04:10 | NUR ---
Rounds Patient is sleeping, symmetrical rise and fall of chest, nonlabored breathing. Call light w/in reach.
[2019-08-01] MEDS: NYSTATIN 500,000 UNITS/5 ML UDC PO SCH ×5 (06:29→23:58)
[2019-08-01] MEDS: methylPREDNISolone SOD SUCC/PF 62.5 MG/ML VIAL IVP SCH ×3 (06:29→20:21)
--- NOTE | 2019-08-01 06:30 | NUR ---
Medications Due medications given, patient tolerating. Daily weight taken.
[2019-08-01] MEDS: DILTIAZEM HCL 25 MG/5 ML VIAL IVP PRN ×2 (07:03→13:33)
--- NOTE | 2019-08-01 07:03 | NUR ---
Increased HR dental laboratory technician apprentice reports HR sustaining over 130, and presently 146. Patient is reporting nausea and is up at restroom, spitting. Administered Cardizem IVP as ordered. will page MD for nausea medication.
--- NOTE | 2019-08-01 07:25 | NUR ---
Closing note Endorse report to RN. KYLE Zheng paged, awaiting call back.
[2019-08-01 07:30] LABS: BASOPHILS % (AUTO) 0.1 % (0.0-2.0); HEMATOCRIT 41.1 % (36-48); HEMOGLOBIN 13.3 g/dL (12.0-16.0); LYMPHOCYTES # (AUTO) 0.6 K/uL (1.0-5.5); MEAN CORPUSCULAR HEMOGLOBIN 31 pg (27-31); MEAN CORPUSCULAR HGB CONC 32 % (32-36); MEAN CORPUSCULAR VOLUME 96 fL (79.0-98.0); MONOCYTES # (AUTO) 1.3 K/uL (0.0-1.0); MONOCYTES % (AUTO) 10.8 % (1.7-9.3); NEUTROPHILS # (AUTO) 10.4 K/uL (1.8-7.7); NEUTROPHILS % (AUTO) 84.1 % (40.0-70.0); PLATELET COUNT (AUTO) 332 K/uL (130-430); RED BLOOD CELL COUNT(AUTO) 4.27 MIL/uL (4.2-6.2); RED CELL DISTRIBUTION WIDTH 16.4 % (9.0-15.0); WHITE BLOOD COUNT (AUTO) 12.3 K/uL (4.8-10.8)
[2019-08-01 07:52] VITALS: BP_SYST 140
[2019-08-01 08:02] LABS: ALANINE AMINOTRANSFERASE 43 U/L (12-78); ALBUMIN 3.6 g/dL (3.4-4.8); ANION GAP 4 (5-15); ASPARTATE AMINOTRANSFERASE 21 U/L (10-37); CALCIUM 8.3 mg/dL (8.4-11.0); CHLORIDE 88 mmol/L (98-107); CREATININE 0.93 mg/dL (0.55-1.30); GLUCOSE 166 mg/dL (70-99); POTASSIUM 3.4 mmol/L (3.5-5.1); SODIUM SERUM 130 mmol/L (136-145); TOTAL BILIRUBIN 0.8 mg/dL (0.0-1.0); UREA NITROGEN, BLOOD 18 mg/dL (8-21)
[2019-08-01] MEDS: HYDROcodone/ACETAMIN 5-325 MG TAB (NORCO/ VICODIN) PO PRN ×3 (08:13→22:47)
[2019-08-01] MEDS: METOPROLOL TARTRATE 25 MG TABLET PO SCH ×2 (08:14→20:19)
[2019-08-01] MEDS: APIXABAN 2.5 MG TABLET PO SCH ×2 (08:15→20:22)
[2019-08-01] MEDS: FUROSEMIDE 40 MG/4 ML VIAL IVP SCH ×2 (08:16→20:20)
--- NOTE | 2019-08-01 08:20 | NUR ---
PT GIVEN AM ,MEDICATIONS, STILL C/O OF NAUSEA, DR BRIGGS CALLED AND GAVE ORDERS. NEW ORDERS CARRIED OUT.
[2019-08-01] MEDS: ONDANSETRON HCL 4 MG/2 ML VIAL IVP PRN ×3 (08:33→20:16)
[2019-08-01] MEDS ORDERED: POTASSIUM CHLORIDE 20 MEQ TAB.PRT.SR PO ONE (09:30)
[2019-08-01 12:36] VITALS: BP_SYST 128
--- NOTE | 2019-08-01 13:27 | NUR ---
Cardiac consult called: for Dr. Bauer (Dr. Loya front end driver), regarding heart rate of 150 to 160, ordered by Dr. Brand, spoke with Zenaida at exchange.
--- NOTE | 2019-08-01 13:33 | NUR ---
pt given cardizem iv for hr 156.
[2019-08-01] MEDS ORDERED: DILTIAZEM HCL 60 MG TABLET PO ONE (13:45)
--- NOTE | 2019-08-01 14:06 | NUR ---
pt given additional dose of cardizem po [address] bustamante
--- NOTE | 2019-08-01 14:35 | NUR ---
pt given zofran for nausea.
[2019-08-01] MEDS: LEVOFLOXACIN 500 MG/D5W 100 ML IV SCH (16:04)
[2019-08-01 16:15] VITALS: BP_SYST 128
--- NOTE | 2019-08-01 17:20 | NUR ---
dr wilkinson here and seen patient, new orders given and carried out. said just continue giving the cardizem po q6 and he will add digoxin.
[2019-08-01] MEDS ORDERED: DIGOXIN 0.5 MG/2 ML AMP IVP SCH (18:00)
[2019-08-01] MEDS: DILTIAZEM HCL 60 MG TABLET PO SCH ×2 (18:52→23:55)
[2019-08-01] MEDS ORDERED: DILT240C54 PO (19:02)
--- NOTE | 2019-08-01 19:05 | NUR ---
pt given cardizem po and iv dig, added to pt's home med recon cartia xt 240 mg. per pt e.r. did not ask her for any changes in her medication during admission.
--- NOTE | 2019-08-01 19:23 | NUR ---
closing notes, pt has been stable, no fever. pt's heart rate still high, given cardizem ivp x1, pt c/o head ache and nausea, given pain med and zofran. painter foreman saw pt and new order for cardizem po and iv dig given and carried out. endorsed to night nurse.
--- NOTE | 2019-08-01 19:36 | NUR ---
Opening NoteR Received patient awake, AOx4 sittting upright with legs dangle on side of bed. Nonlabored breathing on 2L NC. IV is SL to LAC. Bed is locked in lowest position and call light w/in reach. She reports she is experiencing nausea; she has Zofran Q6H prn, which was given at 1430; I will follow up. Updated board and reviewed plan of care.
--- NOTE | 2019-08-01 20:25 | NUR ---
Nausea Patient reporting nausea, no vomit. Administered Zofran for nausea as ordered.
--- NOTE | 2019-08-01 20:35 | NUR ---
Medications Due medications given, educated on side effects and she verbalized understanding. She swallowed tablets w/out difficulty.
--- NOTE | 2019-08-01 22:51 | NUR ---
c/o pain Patient reporting back pain and administered [place] for moderate pain as ordered.
--- NOTE | 2019-08-02 00:02 | NUR ---
scheduled cardizem Due medication given, cardizem given. Patient refused Nystatin, stating that it makes her nauseated. She requested a snack and had a gram cracker, she did not like the applesauce.
[2019-08-02 00:28] VITALS: BP_SYST 131
[2019-08-02] MEDS: IPRATROPIUM BROM 0.5 MG/2.5 ML VIAL.NEB (ATROVENT) INH SCH ×4 (01:00→20:02)
[2019-08-02] MEDS: LevALBUTEROL HCL 1.25 MG/0.5 ML *CONC.* VIAL.NEB (XOPENEX CONC.) INH SCH ×4 (01:00→20:05)
--- NOTE | 2019-08-02 02:17 | NUR ---
Sleeping Patient is sleeping , symmetrical rise and fall of chest noted. Call light w/in reach and safety precautions in place.
--- NOTE | 2019-08-02 04:15 | NUR ---
Rounds Sleeping Patient is sleeping , symmetrical rise and fall of chest, nonlabored breathing noted. Call light w/in reach and safety precautions in place.
[2019-08-02] MEDS: HYDROcodone/ACETAMIN 5-325 MG TAB (NORCO/ VICODIN) PO PRN ×3 (06:00→17:04)
[2019-08-02] MEDS: NYSTATIN 500,000 UNITS/5 ML UDC PO SCH ×4 (06:00→23:24)
[2019-08-02] MEDS: DILTIAZEM HCL 60 MG TABLET PO SCH ×4 (06:00→23:20)
--- NOTE | 2019-08-02 06:06 | NUR ---
cardizem / [place] Due medication, cardizem given. Patient refused Nystatin, stating that it makes her nauseated. Reported pain to back and headache, administered [place] for pain as ordered. Presently denies nausea.
--- NOTE | 2019-08-02 06:56 | NUR ---
Nutrition Update Marco Scale 18 noted. Pt admitted for COPD exacerbation Diet: 2gm Na BMI: 35.2 kg/m2 RD to follow per nutrition care standards.
[2019-08-02] MEDS: ONDANSETRON HCL 4 MG/2 ML VIAL IVP PRN ×2 (07:25→16:30)
--- NOTE | 2019-08-02 07:30 | NUR ---
Initial notes- In bed, awake. waiting for breakfast. Pt stated she feels better. denies any chest pain, still has shortness of breath. On 02 2l. tolerating well. Update plan of care. enc. Call for help as needed. Call light within reach. will monitor.
[2019-08-02 07:43] LABS: ALANINE AMINOTRANSFERASE 52 U/L (12-78); ALBUMIN 3.7 g/dL (3.4-4.8); ANION GAP 6 (5-15); ASPARTATE AMINOTRANSFERASE 23 U/L (10-37); CALCIUM 8.8 mg/dL (8.4-11.0); CREATININE 0.98 mg/dL (0.55-1.30); GLUCOSE 179 mg/dL (70-99); POTASSIUM 3.2 mmol/L (3.5-5.1); SODIUM SERUM 127 mmol/L (136-145); UREA NITROGEN, BLOOD 25 mg/dL (8-21)
[2019-08-02 07:47] LABS: CHLORIDE 84 mmol/L (98-107)
[2019-08-02 08:00] VITALS: BP_SYST 132
[2019-08-02] MEDS: METOPROLOL TARTRATE 25 MG TABLET PO SCH ×2 (08:41→21:40)
[2019-08-02] MEDS: DIGOXIN 0.125 MG TABLET PO SCH (08:41)
[2019-08-02] MEDS: methylPREDNISolone SOD SUCC/PF 62.5 MG/ML VIAL IVP SCH (08:42)
[2019-08-02] MEDS: FUROSEMIDE 40 MG/4 ML VIAL IVP SCH (08:42)
[2019-08-02] MEDS: APIXABAN 2.5 MG TABLET PO SCH ×2 (08:44→21:39)
--- NOTE | 2019-08-02 09:00 | NUR ---
rounds- Seen by dr. vega at bedside
--- NOTE | 2019-08-02 10:03 | NUR ---
Rounds-Resting at this time. no complaints.
[2019-08-02 11:22] VITALS: BP_SYST 120
--- NOTE | 2019-08-02 11:40 | NUR ---
notes- Complain of back pain. medicated with norco
[2019-08-02] MEDS ORDERED: POTASSIUM CHLORIDE 20 MEQ TAB.PRT.SR PO ONE (12:00)
[2019-08-02 15:20] VITALS: BP_SYST 140
--- NOTE | 2019-08-02 16:00 | NUR ---
Notes- Resting in bed, no acute distress noted.
[2019-08-02] MEDS: LEVOFLOXACIN 500 MG/D5W 100 ML IV SCH (16:31)
--- NOTE | 2019-08-02 18:27 | NUR ---
Notes- Sitting at the edge of the bed. Pain is controlled at this time. No acute distress noted. All needs meet. Will endorse
--- NOTE | 2019-08-02 18:48 | NUR ---
Notes- Called exchange RE: pt takes protonix at home and wants to continue it. Waiting for Dr. Story to call back
--- NOTE | 2019-08-02 20:00 | NUR ---
INITIAL NOTES: PT IS AWAKE , ALERT AND ORIENTED; VITALS ARE STABLE ON O2 2L NC ; PT STATED SHE CANT LYE DOWN BECAUSE SHE CANNOT BREATH ; ASSESSMENT DONE , NOTICED THAT PT USES HER WALKER AND GOES TO THE RESTROOM WITHOUT CALLING , ENCOURAGED PT TO CALL FOR ASSISTANCE ; PT REFUSED BED ALARM ; BED IN LOW AND LOCK POSITION ,CALL RIVAS IN REACH ; WILL CONTINUE TO MONITOR PT .
[2019-08-02 21:15] VITALS: BP_SYST 140
--- NOTE | 2019-08-02 21:40 | NUR ---
DUE MEDS GIVEN , PT IS SITTING AT THE EDGE OF THE BED , PT REQUESTED FOR PAIN MEDICATION , PAGED .
--- NOTE | 2019-08-02 21:55 | NUR ---
CALLED : DR BEE CALLED AND INFORMED THAT PT REQUESTING FOR PROTONIX , INFORMED THAT PER PT SHE TAKES PROTONIX 40 MG PO DAILY , MD ORDERED PROTONIX 40 MG PO DAILY AND 1ST DOSE NOW . ALSO NOTIFIED MD THAT PT IS REQUESTING FOR PAIN MEDICATION , AND PT RECEIVED NORCO 5/325 ALMOST 5 HRS AGO AND HER MEDICATION IS NOT DUE ONLY AFTER 2300 , MD ORDERED NORCO 5/325 X1 NOW . ALSO NOTIFIED OF PT C/O OF HARD TIME LAYING DOWN , NOTIFIED THAT PT SAT 96% ON 2 L NC ,PT RECEIVED LASIX AND SOLUMEDROL IN AM , MD ORDERED TO MONITOR PT .
[2019-08-02] MEDS ORDERED: PANTOPRAZOLE SODIUM 40 MG TAB PO ONE (22:00)
[2019-08-02] MEDS ORDERED: HYDROcodone/ACETAMIN 5-325 MG TAB (NORCO/ VICODIN) PO SCH (22:30)
--- NOTE | 2019-08-02 22:31 | NUR ---
RN NOTES; PER MD ORDERED NORCO AND PROTONIX GIVEN . PT IS LYING DOWN , C/O DIFFICULTY IN LYING DOWN .CALLED AND REQUESTED RT TO GIVE BREATHING TREATMENT , PT SAT 96% ON O2 2L NC .
--- NOTE | 2019-08-02 23:35 | NUR ---
DUE MEDS GIVEN , PT REFUSED NYSTATIN , PT STATED IT CAUSES NAUSEA, . WILL CONTINUE TO MONITOR PT .
[2019-08-03 00:02] VITALS: BP_SYST 151
--- NOTE | 2019-08-03 00:20 | NUR ---
RN NOTES: PT IS SLEEPING , COMFORTABLE , RESPIRATION IS EVEN AND NONLABORED ; WILL CONTINUE TO MONITOR PT .
[2019-08-03] MEDS: IPRATROPIUM BROM 0.5 MG/2.5 ML VIAL.NEB (ATROVENT) INH SCH ×4 (00:57→19:47)
[2019-08-03] MEDS: LevALBUTEROL HCL 1.25 MG/0.5 ML *CONC.* VIAL.NEB (XOPENEX CONC.) INH SCH ×4 (00:57→19:47)
--- NOTE | 2019-08-03 02:10 | NUR ---
RN NOTES: PT IS SLEEPING , COMFORTABLE , RESPIRATION IS EVEN AND NONLABORED ON O2 2L NC ; WILL CONTINUE TO MONITOR PT .
[2019-08-03] MEDS: HYDROcodone/ACETAMIN 5-325 MG TAB (NORCO/ VICODIN) PO PRN ×3 (03:28→18:51)
--- NOTE | 2019-08-03 03:30 | NUR ---
RN NOTES: PT DIDNT CALL FOR HELP , NOTICED HR IS ON THE 120'S , WENT TO ROOM TO CHECK PT , PT IS UP AND SITTING AT THE EDGE OF THE BED , PT STATED SHE WENT TO THE RESTROOM , PT HAS BSC AT BEDSIDE STILL SHE DIDNT USE IT , ENCOURAGED PT TO CALL FOR HELP AND REQUESTED PT TO USE BSC . PT REFUSED BED ALARM Addendum: 08/03/19 at 0433 by Blanca Chen RN PT REQUESTED FOR NORCO FOR HEADACHE , MEDICATED WITH NORCO PER ORDER
--- NOTE | 2019-08-03 04:33 | NUR ---
RN NOTES: PT IS SLEEPING , COMFORTABLE , RESPIRATION IS EVEN AND NONLABORED ; WILL CONTINUE TO MONITOR PT .
[2019-08-03] MEDS: NYSTATIN 500,000 UNITS/5 ML UDC PO SCH ×3 (06:00→17:10)
[2019-08-03] MEDS: PANTOPRAZOLE SODIUM 40 MG TAB PO SCH (06:15)
[2019-08-03] MEDS: DILTIAZEM HCL 60 MG TABLET PO SCH ×3 (06:20→17:28)
--- NOTE | 2019-08-03 06:55 | NUR ---
CLOSING NOTES : PT IS AWAKE , NOT IN ANY ACUTE DISTRESS , PT STATED SHE IS FEELING BETTER NOW , ALL NEEDS ATTENDED ; WILL CONTINUE TO MONITOR AND WILL ENDORSE TO NEXT SHIFT NURSE .
--- NOTE | 2019-08-03 07:40 | NUR ---
opening note patient sitting on the edge of the bed and using her phone, no signs of distress at this time, educated door to door salesperson light system and plan of care, patient verbalized understanding, on 2L nasal cannula, no other needs addressed at this time, bed in lowest position, patient refused bed alarm at this time education was provided on the benefits of it and patient still refused to have it on, two side rails up, call light within reach, fall/safety precautions in place.
[2019-08-03 08:00] VITALS: BP_SYST 111
[2019-08-03] MEDS: DIGOXIN 0.125 MG TABLET PO SCH (08:55)
[2019-08-03] MEDS: METOPROLOL TARTRATE 25 MG TABLET PO SCH ×2 (08:55→20:13)
[2019-08-03] MEDS: APIXABAN 2.5 MG TABLET PO SCH ×2 (08:56→20:15)
[2019-08-03] MEDS ORDERED: FUROSEMIDE 40 MG/4 ML VIAL IVP SCH (09:00)
[2019-08-03] MEDS ORDERED: PREDNISONE 20 MG TABLET PO SCH (09:00)
--- NOTE | 2019-08-03 10:40 | NUR ---
Dr Story rounds came to see patient, no signs of distress at this time, on 2L nasal cannula, pain has improved, fall/safety precautions in place.
[2019-08-03] MEDS ORDERED: MAGNESIUM SULFATE 50 ML IV ONE (10:45)
[2019-08-03 11:20] VITALS: BP_SYST 147
--- NOTE | 2019-08-03 12:00 | NUR ---
rounds patient walking around in room with her walker, educated on medication uses and side effects, patient verbalized understanding, assisted her with getting back into bed, no other needs at this time, fall/safety precautions in place.
[2019-08-03] MEDS: methylPREDNISolone SOD SUCC 40 MG/ML VIAL IVP SCH ×2 (13:30→22:38)
--- NOTE | 2019-08-03 14:20 | NUR ---
assisted patient to bathroom patient used walker to the bathroom, patient has her portable oxygen, no signs of distress at this time, fall/safety precautions in place.
[2019-08-03 15:01] VITALS: BP_SYST 121
[2019-08-03] MEDS: LEVOFLOXACIN 500 MG/D5W 100 ML IV SCH (16:02)
--- NOTE | 2019-08-03 16:05 | NUR ---
deidra patient sitting on the edge of the bed, patient states it helps with her back pain sitting down, educated on medication use and side effects, patient verbalized understanding, no signs of distress at this time, fall/safety precautions in place.
--- NOTE | 2019-08-03 18:51 | NUR ---
closing note patient sitting on the edge of the bed and using her phone, no signs of distress at this time, on 2L nasal cannula, pain medication given, no other needs addressed at this time, bed in lowest position, patient refused bed alarm at this time education was provided on the benefits of it and patient still refused to have it on, two side rails up, call light within reach, fall/safety precautions in place, patient has own walker at the bedside, will endorse report to noc shift nurse to continue with care.
[2019-08-03 19:40] VITALS: BP_SYST 147
--- NOTE | 2019-08-03 19:40 | NUR ---
INITIAL NOTES PATIENT IS SITTING ON THE EDGE OF THE BED ON HER PHONE. PATIENT EDUCATED ON SAFETY AT THIS TIME. PATIENT REQUESTED TO STAY SITTING ON THE EDGE OF THE BED. PATIENT SUCCESSFULLY DEMONSTRATES USAGE OF CALL LIGHT AT THIS TIME. BED IS LOCKED, AND AT THE LOWEST POSITION. PATIENT REFUSES BED ALARM DESPITE EDUCATIONAL EFFORTS. WILL FREQUENTLY MONITOR. PATIENT IS STABLE. NO S/S OF RESPIRATORY DISTRESS NOTED. CALL LIGHT IS WITHIN REACH. FALL, SAFETY, ASPIRATION, AND RESPIRATORY PRECAUTIONS WILL BE PLACED THROUGHOUT THE SHIFT. PATIENT EDUCATED ON LIMITING FLUIDS DUE TO CHF. PATIENT REQUESTED MORE WATER. FREQUENT MONITORING OF INTAKE AND OUTPUT WILL BE THROUGHOUT THE SHIFT.
--- NOTE | 2019-08-03 21:40 | NUR ---
ROUNDING PATIENT IS STILL SITTING ON THE EDGE OF THE BED WATCHING TV AND PLAYING ON HER PHONE. PATIENT IS STABLE. NO S/S OF RESPIRATORY DISTRESS NOTED. CALL LIGHT IN REACH. BED IS LOCKED AND AT THE LOWEST POSITION. WILL CONTINUE TO MONITOR.
--- NOTE | 2019-08-03 23:40 | NUR ---
ROUNDING PATIENT IS STILL SITTING ON THE EDGE OF THE BED WATCHING TV. PATIENT IS STABLE. NO S/S OF RESPIRATORY DISTRESS NOTED. CALL LIGHT IN REACH. BED IS LOCKED AND AT THE LOWEST POSITION. WILL CONTINUE TO MONITOR.
[2019-08-04 00:05] VITALS: BP_SYST 144
[2019-08-04] MEDS: DILTIAZEM HCL 60 MG TABLET PO SCH ×2 (00:05→06:32)
[2019-08-04 00:50] VITALS: BP_SYST 147
[2019-08-04] MEDS: HYDROcodone/ACETAMIN 5-325 MG TAB (NORCO/ VICODIN) PO PRN ×2 (00:56→09:37)
--- NOTE | 2019-08-04 01:40 | NUR ---
ROUNDING PATIENT IS SLEEPING IN BED. PATIENT IS STABLE. PATIENT SHOWS NO S/S OF RESPIRATORY DISTRESS NOTED. CALL LIGHT IN REACH. BED IS LOCKED, AND AT THE LOWEST POSITION. WILL CONTINUE TO MONITOR.
[2019-08-04] MEDS: LevALBUTEROL HCL 1.25 MG/0.5 ML *CONC.* VIAL.NEB (XOPENEX CONC.) INH SCH ×2 (01:54→07:13)
[2019-08-04] MEDS: IPRATROPIUM BROM 0.5 MG/2.5 ML VIAL.NEB (ATROVENT) INH SCH ×2 (01:55→07:13)
--- NOTE | 2019-08-04 05:40 | NUR ---
ROUNDING PATIENT IS SLEEPING IN BED. NO S/S OF RESPIRATORY DISTRESS NOTED. CALL LIGHT IN REACH. BED IS LOCKED, ALARMED, AND AT THE LOWEST POSITION. WILL CONTINUE TO MONITOR.
[2019-08-04] MEDS: NYSTATIN 500,000 UNITS/5 ML UDC PO SCH ×3 (06:00→12:00)
[2019-08-04] MEDS: PANTOPRAZOLE SODIUM 40 MG TAB PO SCH (06:31)
[2019-08-04] MEDS: methylPREDNISolone SOD SUCC 40 MG/ML VIAL IVP SCH (06:32)
--- NOTE | 2019-08-04 07:00 | NUR ---
CLOSING NOTES ASSISTED PATIENT TO THE RESTROOM. PATIENT TOLERATED WELL. PATIENT IS NOW AT THE EDGE OF THE BED ON HER PHONE. PATIENT IS STABLE AND SHOWS NO S/S OF RESPIRATORY DISTRESS. CALL LIGHT IN REACH. BED IS LOCKED AND AT THE LOWEST POSITION. FALL, SAFETY, RESPIRATORY, AND ASPIRATION PRECAUTIONS HAS BEEN PLACED THROUGHOUT THE SHIFT. WILL CONTINUE TO MONITOR UNTIL REPORT IS GIVEN TO AM NURSE BY BEDSIDE,.
--- NOTE | 2019-08-04 07:45 | NUR ---
opening note patient sitting on the edge of the bed and using her phone, no signs of distress at this time, educated refinery operator polymerization plant light system and plan of care, patient verbalized understanding, on 2L nasal cannula, no other needs addressed at this time, bed in lowest position, patient refused bed alarm at this time education was provided on the benefits of it and patient still refused to have it on, two side rails up, call light within reach, fall/safety precautions in place.
[2019-08-04 08:00] VITALS: BP_SYST 131
[2019-08-04] MEDS: DIGOXIN 0.125 MG TABLET PO SCH (08:15)
[2019-08-04] MEDS: METOPROLOL TARTRATE 25 MG TABLET PO SCH (08:15)
[2019-08-04] MEDS: APIXABAN 2.5 MG TABLET PO SCH (08:15)
[2019-08-04 10:02] VITALS: BP_SYST 131
[2019-08-04] MEDS ORDERED: BUDE6HFA INH (10:17)
[2019-08-04] MEDS ORDERED: METH4TAB3 PO (10:20)
[2019-08-04] MEDS ORDERED: DOXY100C PO (10:20)
--- NOTE | 2019-08-04 10:20 | NUR ---
Dr Brand rounds came to see patient, no signs of distress at this time, on 2L nasal cannula, pain has improved, fall/safety precautions in place, will put in order for discharge.
--- NOTE | 2019-08-04 12:24 | NUR ---
Dr. Robins wants x1 dose of doxycycline PO then patient can discharge home, order noted and carried out.
--- NOTE | 2019-08-04 12:25 | NUR ---
D/C Patient Patient given medication reconciliation form and D/C instructions. Exit Care provided. Patient verbalized understanding. MD discussed with patient the results and treatment provided. Ambulatory with steady gait for discharge to home. Patient in stable condition, ID band removed. IV catheter removed, intact and dressing applied, no active bleeding. Rx sent electronically to her pharmacy. Patient educated on pain management. All belongings sent with patient.
[2019-08-04] MEDS ORDERED: DOXYCYCLINE HYCLATE 100 MG CAPSULE PO ONE (12:30)
--- NOTE | 2019-08-05 10:38 | NUR ---
CHF FOLLOW-UP WITH PRIMARY PHYSICIAN MATILDE MCDERMOTT OFFICE CALLED FOR APPOINTMENT ANTONIO FOR 3:30PM (1530 ON FRIDAY WITH .
--- NOTE | 2019-08-06 14:21 | NUR ---
PHYSICAL THERAPY CO-SIGN The Physical Therapy Progress Notes documented by Recovery Auditor have been reviewed. Reviewed/Co-Signed by: Esdras Araiza PT Documentation Done by: TERA PEDROZA PTA Addendum: 08/06/19 at 1422 by Esdras Araiza PT Amended: Links added.
== END 2019-08-04 12:25 | disposition home or self-care (01) | DRG 291 ==
LOC: SED 10:46 → STU 14:44
PROVIDERS: ADMIT Internal Medicine Hospice and Palliative Medicine; ATTEND Internal Medicine Hospice and Palliative Medicine
DX: I11.0 Hypertensive heart disease with heart failure (principal); J18.9 Pneumonia, unspecified organism; J44.1 Chronic obstructive pulmonary disease with (acute) exacerbation; J96.10 Chronic respiratory failure, unspecified whether with hypoxia or hypercapnia; I48.19 Other persistent atrial fibrillation; E87.1 Hypo-osmolality and hyponatremia; J44.0 Chronic obstructive pulmonary disease with (acute) lower respiratory infection; I50.33 Acute on chronic diastolic (congestive) heart failure; E66.01 Morbid (severe) obesity due to excess calories; G89.29 Other chronic pain; J61 Pneumoconiosis due to asbestos and other mineral fibers; E78.5 Hyperlipidemia, unspecified; M35.3 Polymyalgia rheumatica; E87.6 Hypokalemia; Z79.01 Long term (current) use of anticoagulants; Z79.899 Other long term (current) drug therapy; Z85.41 Personal history of malignant neoplasm of cervix uteri; Z86.718 Personal history of other venous thrombosis and embolism; Z87.891 Personal history of nicotine dependence; Z90.710 Acquired absence of both cervix and uterus; Z99.81 Dependence on supplemental oxygen; Z88.1 Allergy status to other antibiotic agents; Z88.8 Allergy status to other drugs, medicaments and biological substances; Z68.35 Body mass index [BMI] 35.0-35.9, adult
CPT/HCPCS: 36415; 36600; 71045; 80053; 81003; 82803-TC; 83605; 83880; 84484; 85025; 85610-TC; 85730-TC; 87040-TC; 87086; 93005; 93306; 94640; 94760; 96365; 97110-GP; 97116-GP; 97530-GP; 99285; G0378; J1030; J1160; J1940; J1956; J2405; J2543; J2930; J3475; J3490; J7030; J7040; J7512; J7612; J7620

== ENCOUNTER 2019-08-08 19:08 | Inpatient (IN) | payer OTHER ==
[~2019-08-08] VITALS: Ht 154.9 cm; Wt 86.2 kg
[2019-08-08 19:08] VITALS: BP_SYST 163
[~2019-08-08 19:08] MED LIST changes: -AMOX-426 PO; +DILT240C54 PO; +DOXY100C PO; +METH4TAB3 PO
--- NOTE | 2019-08-08 19:10 | NUR ---
Peter jackson in ED - 08/08/19 at 2006 by [email or web address] Pt wheeled to bed 6 for evaluation
--- NOTE | 2019-08-08 19:25 | NUR ---
PLACED IN BED 6. HERE FOR SOB,COUGH. WAS JUST DISCHARGED FROM [facility] LAST 08/04/19 WITH A DIAGNOSIS OF PNEUMONIA. PT.WAS PRESCRIBED PO ANTIBIOTICS. NON-IMPROVEMENT OF SYMPTOMS PROMPTED RETURN TO THE E.R.
--- NOTE | 2019-08-08 20:20 | NUR ---
Peter jackson in EDM - 08/08/19 at 2028 by [email or web address] ER-MD CAME BY BEDSIDE TO EVALUATE PT.
--- NOTE | 2019-08-08 20:25 | NUR ---
Peter jackson in EDM - 08/08/19 at 2025 by [email or web address] BP BETTER 116/47. STILL WAITING FOR VESSEL MANAGER. BP BETTER 116/47.
[2019-08-08] MEDS ORDERED: NACL 0.9% 1,000 ML IV ONE (20:44)
[2019-08-08] MEDS ORDERED: methylPREDNISolone SOD SUCC/PF 62.5 MG/ML VIAL IVP ONE (20:45)
[2019-08-08] MEDS ORDERED: LevALBUTEROL HCL 1.25 MG/0.5 ML *CONC.* VIAL.NEB (XOPENEX CONC.) INH ONE (20:45)
[2019-08-08] MEDS ORDERED: IPRATROPIUM BROM 0.5 MG/2.5 ML VIAL.NEB (ATROVENT) INH ONE (20:45)
[2019-08-08 20:57] LABS: BILIRUBIN,URINE NEGATIVE (NEGATIVE); BLOOD, URINE NEGATIVE (NEGATIVE); CLARITY/URINE CLEAR (CLEAR); COLOR,URINE YELLOW (YELLOW); GLUCOSE,URINE 1+ (NEGATIVE); KETONES,URINE NEGATIVE (NEGATIVE); LEUKOCYTE ESTERASE ,URINE NEGATIVE (NEGATIVE); NITRITE, URINE NEGATIVE (NEGATIVE); PROTEIN URINE NEGATIVE (NEGATIVE); UROBILINOGEN,URINE 0.2 (0.2-1.0)
--- NOTE | 2019-08-08 21:00 | NUR ---
BREATHING TREATMENT GIVEN BY RT.
--- NOTE | 2019-08-08 21:15 | NUR ---
GAUGE 20 IV LINE ESTABLISHED TO THE RIGHT HAND. BLOOD ALSO DRAWN AND SENT TO THE LAB. NS 1 LITER AT 100 ML/HR AND SOLUMEDROL 80 MG IVP GIVEN ORDERED.
--- NOTE | 2019-08-08 21:20 | NUR ---
PORTABLE CXR DONE.
[2019-08-08 21:40] LABS: BASOPHILS # (AUTO) 0.1 K/uL (0.0-0.2); BASOPHILS % (AUTO) 0.4 % (0.0-2.0); HEMATOCRIT 39.4 % (36-48); HEMOGLOBIN 12.9 g/dL (12.0-16.0); LYMPHOCYTES # (AUTO) 0.4 K/uL (1.0-5.5); LYMPHOCYTES % (AUTO) 2.1 % (20.5-51.5); MEAN CORPUSCULAR HEMOGLOBIN 32 pg (27-31); MEAN CORPUSCULAR HGB CONC 33 % (32-36); MEAN CORPUSCULAR VOLUME 97 fL (79.0-98.0); MONOCYTES # (AUTO) 1.3 K/uL (0.0-1.0); MONOCYTES % (AUTO) 7.8 % (1.7-9.3); NEUTROPHILS % (AUTO) 89.7 % (40.0-70.0); PLATELET COUNT (AUTO) 335 K/uL (130-430); RED BLOOD CELL COUNT(AUTO) 4.07 MIL/uL (4.2-6.2); RED CELL DISTRIBUTION WIDTH 16.5 % (9.0-15.0); WHITE BLOOD COUNT (AUTO) 16.7 K/uL (4.8-10.8)
[2019-08-08] MEDS ORDERED: PANTOPRAZOLE SODIUM 40 MG/VIAL (PROTONIX) IVP ONE (21:45)
[2019-08-08] MEDS ORDERED: MAG-AL HYDROX/SIMETH 30 ML UDC PO ONE (21:45)
[2019-08-08 21:50] LABS: ANION GAP 4 (5-15); CALCIUM 9.4 mg/dL (8.4-11.0); CHLORIDE 96 mmol/L (98-107); CREATININE 0.78 mg/dL (0.55-1.30); GLUCOSE 182 mg/dL (70-99); POTASSIUM 4.2 mmol/L (3.5-5.1); SODIUM SERUM 134 mmol/L (136-145); UREA NITROGEN, BLOOD 23 mg/dL (8-21)
[2019-08-08 21:51] LABS: PROTHROMBIN TIME 10.3 SECS (9.5-12.5)
--- NOTE | 2019-08-08 22:00 | NUR ---
MAALOX 30 ML PO AND PROTONIX 40 MG IVP GIVEN ORDERED FOR COMPLAINT OF HEARTBURN. PT. VERBALIZED IMPROVEMENT OF SOB.
[2019-08-08 22:04] LABS: ALANINE AMINOTRANSFERASE 62 U/L (12-78); ALBUMIN 3.6 g/dL (3.4-4.8); ASPARTATE AMINOTRANSFERASE 37 U/L (10-37); TOTAL BILIRUBIN 0.7 mg/dL (0.0-1.0)
--- NOTE | 2019-08-08 23:30 | NUR ---
ADMITTED TO TELEMETRY IN-PATIENT STATUS FOR PNEUMONIA UNDER THE SERVICE OF . GAVE PARTIAL ADMITTING ORDERS. THE REST OF ORDERS SHE WILL ENTER THEM HERSELF.
[2019-08-08] MEDS ORDERED: POTA20TA83 PO (23:40)
--- NOTE | 2019-08-08 23:41 | NUR ---
Medication reconciliation completed with information provided by patient. Any prior medication reconciliation on file was reviewed and corrected.
[2019-08-09] MEDS ORDERED: MORPHINE 4 MG/ML INJ. SYRINGE IVP PRN (00:15)
[2019-08-09] MEDS ORDERED: ALBUTEROL MDI INHALATION 8 GM INH INH PRN (00:15)
[2019-08-09] MEDS ORDERED: ONDANSETRON HCL 4 MG/2 ML VIAL IVP PRN (00:15)
[2019-08-09] MEDS ORDERED: ALBUTEROL SULFATE 0.083% 2.5 MG/3 ML VIAL.NEB INH PRN (00:15)
[2019-08-09] MEDS ORDERED: MORPHINE 2 MG/ML INJ. SYRINGE IVP PRN (00:15)
--- NOTE | 2019-08-09 00:43 | NUR ---
TRANSFERRED TO [facility]LOOR [facility]IA [facility]. TRANSFER UNEVENTFUL.
--- NOTE | 2019-08-09 00:45 | NUR ---
ADMISSION NOTE Received patient from ER via gurney. Patient admitted with diagnosis of PNA. Patient is awake, alert, oriented. Patient oriented to hospital room, call light, toileting, pain management and safety-teach back done. Patient informed that DOUGLAS will be HER nurse and that their room number is 134A. Personal belongings checked and Belongings List documented. Call light within reach.
--- NOTE | 2019-08-09 00:49 | NUR ---
BEDSIDE REPORT GIVEN TO TELEMETRY NURSE DOUGLAS TOLEDO.
[2019-08-09 00:55] VITALS: BP_SYST 159
[2019-08-09 01:33] VITALS: BP_SYST 164
[2019-08-09] MEDS ORDERED: PIPERACILLIN/TAZOBACTAM 3.375 GM/VIAL (ZOSYN) IV ONE (01:38)
[2019-08-09] MEDS: HYDROcodone/ACETAMIN 5-325 MG TAB (NORCO/ VICODIN) PO PRN ×4 (01:40→20:55)
--- NOTE | 2019-08-09 01:40 | NUR ---
PAIN Patient complained of lower back pain. PRN medication administered at this time. Will continue to monitor and reassess.
[2019-08-09] MEDS: PIPERACILLIN/TAZO 3.375/DEX-IS 50 ML IV SCH ×5 (01:41→23:58)
--- NOTE | 2019-08-09 02:30 | NUR ---
VOID Patient called for assistance to walk to bathroom and back to bed to void, assisted by RN. Patient tolerated activity well. All needs met. Call light with patient. Will continue to monitor.
--- NOTE | 2019-08-09 03:50 | NUR ---
DR. BEE AT BEDSIDE/ASSISTED PATIENT TO BATHROOM Dr. Bee at bedside assessing patient. Patient walked to bathroom to void and back to bed. All needs met. Call light with patient. Bed locked and at lowest position. Will continue to monitor.
--- NOTE | 2019-08-09 05:20 | NUR ---
CONSULTATION PAGED/CALLED Reason for Consultation: PERSISTANT PNEUMONIA Person Who was Notified: DEB Consulting Physician: Scientific Informatics Project Leader Specialty: Ordering Physician:
--- NOTE | 2019-08-09 06:48 | NUR ---
CLOSING NOTES Patient in bed, awake, AOx4, sitting up at side of bed. No s/s of acute distress noted. Breathing even and unlabored. Nasal canula attached properly, on 2L of oxygen. IVF infusing well, IV site is patent, no signs of infiltration or infection noted. All needs met throughout shift. Fall and safety precautions maintained throughout the shift. Will continue to monitor until patient care is endorsed to oncoming dayshift nurse.
[2019-08-09 07:39] LABS: BASOPHILS % (AUTO) 0.1 % (0.0-2.0); HEMATOCRIT 37.7 % (36-48); HEMOGLOBIN 12.2 g/dL (12.0-16.0); LYMPHOCYTES # (AUTO) 0.3 K/uL (1.0-5.5); LYMPHOCYTES % (AUTO) 2.1 % (20.5-51.5); MEAN CORPUSCULAR HEMOGLOBIN 32 pg (27-31); MEAN CORPUSCULAR HGB CONC 32 % (32-36); MEAN CORPUSCULAR VOLUME 98 fL (79.0-98.0); MONOCYTES # (AUTO) 0.6 K/uL (0.0-1.0); MONOCYTES % (AUTO) 4.6 % (1.7-9.3); NEUTROPHILS # (AUTO) 12.6 K/uL (1.8-7.7); PLATELET COUNT (AUTO) 300 K/uL (130-430); RED BLOOD CELL COUNT(AUTO) 3.85 MIL/uL (4.2-6.2); RED CELL DISTRIBUTION WIDTH 16.3 % (9.0-15.0); WHITE BLOOD COUNT (AUTO) 13.5 K/uL (4.8-10.8)
--- NOTE | 2019-08-09 07:40 | NUR ---
OPENING NOTES, RECEIVED PT SITTING ON EDGE OF BED, PT IS AAOX4, C/O OF 7/10 PAIN ON HER BACK. , NO SOB, NO RESP DISTRESS. PT ON O2 2L PER NC. NO FEVER. IV FLUIDS INFUSING WELL. IV ACCESS INTACT AND PATENT. NO REDNESS OR PAIN. SAFETY PRECAUTION IN PLACE. CALL LIGHT IN REACH. BED IN LOW POSITION. ENCOURAGED PT AND FAMILY TO CALL FOR ASSIST AND PAIN MEDS AND ANY CONCERNS. PATIENT GIVEN PAIN MEDS FOR BACK PAIN.
[2019-08-09 07:42] VITALS: BP_SYST 164
[2019-08-09 07:56] LABS: ALANINE AMINOTRANSFERASE 71 U/L (12-78); ALBUMIN 3.1 g/dL (3.4-4.8); ANION GAP 2 (5-15); ASPARTATE AMINOTRANSFERASE 44 U/L (10-37); CALCIUM 8.5 mg/dL (8.4-11.0); CHLORIDE 96 mmol/L (98-107); CREATININE 0.86 mg/dL (0.55-1.30); GLUCOSE 216 mg/dL (70-99); POTASSIUM 4.5 mmol/L (3.5-5.1); SODIUM SERUM 132 mmol/L (136-145); TOTAL BILIRUBIN 0.7 mg/dL (0.0-1.0); UREA NITROGEN, BLOOD 22 mg/dL (8-21)
[2019-08-09] MEDS: ATORVASTATIN 20 MG TABLET PO SCH (08:49)
[2019-08-09] MEDS: PANTOPRAZOLE SODIUM 40 MG TAB PO SCH (08:49)
[2019-08-09] MEDS: DOXYCYCLINE HYCLATE 100 MG CAPSULE PO SCH ×2 (08:50→20:54)
[2019-08-09] MEDS: POTASSIUM CHLORIDE 20 MEQ TAB.PRT.SR PO SCH (08:50)
[2019-08-09] MEDS: APIXABAN 2.5 MG TABLET PO SCH ×2 (08:51→20:53)
[2019-08-09] MEDS: METOPROLOL TARTRATE 25 MG TABLET PO SCH ×2 (08:52→20:54)
[2019-08-09] MEDS: DILTIAZEM HCL 240 MG CAP.SR.24H PO SCH (08:53)
[2019-08-09] MEDS ORDERED: FUROSEMIDE 20 MG TABLET PO SCH (09:00)
[2019-08-09] MEDS ORDERED: TIOTROPIUM BROMIDE 18 mcg/INHALATION (CAPSULE) INH SCH (09:00)
[2019-08-09] MEDS ORDERED: PREDNISONE 20 MG TABLET PO SCH (09:00)
[2019-08-09] MEDS ORDERED: IPRATROPIUM BROM 0.5 MG/2.5 ML VIAL.NEB (ATROVENT) INH PRN (09:00)
[2019-08-09] MEDS ORDERED: amLODIPine BESYLATE 5 MG TABLET PO SCH (09:00)
[2019-08-09] MEDS ORDERED: LevALBUTEROL HCL 1.25 MG/0.5 ML *CONC.* VIAL.NEB (XOPENEX CONC.) INH PRN (09:00)
--- NOTE | 2019-08-09 10:00 | NUR ---
PT SEEN STANDING WITH HER WALKER NEAR THE DOOR. PT STATED SHE IS JUST TRYING TO MOVE AROUND.
[2019-08-09] MEDS ORDERED: methylPREDNISolone SOD SUCC/PF 62.5 MG/ML VIAL IVP ONE (10:15)
[2019-08-09] MEDS ORDERED: IPRATROPIUM BROM 0.5 MG/2.5 ML VIAL.NEB (ATROVENT) INH SCH (11:00)
--- NOTE | 2019-08-09 11:34 | NUR ---
CONSULTATION PAGED REASON FOR CONSULTATION:CHF WAS CONSULT CALLED?Y PERSON WHO WAS NOTIFIED:SAUNDRA CONSULTING PHYSICIAN:ISABEL WU AIRPORT SECURITY SCREENER SPECIALTY:CARDIO AIRPORT SECURITY SCREENER PHONE NUMBER:[phone] REQUESTING PHYSICIAN:SERA DAN
[2019-08-09 12:01] LABS: NEUTROPHILS % (AUTO) 93.2 % (40.0-70.0)
[2019-08-09 12:47] VITALS: BP_SYST 152
[2019-08-09] MEDS: methylPREDNISolone SOD SUCC/PF 62.5 MG/ML VIAL IVP SCH ×2 (14:07→22:03)
--- NOTE | 2019-08-09 14:07 | NUR ---
PT GIVEN PAIN MED.
[2019-08-09] MEDS: LevALBUTEROL HCL 1.25 MG/0.5 ML *CONC.* VIAL.NEB (XOPENEX CONC.) INH SCH ×2 (14:17→19:15)
[2019-08-09] MEDS: IPRATROPIUM BROM 0.5 MG/2.5 ML VIAL.NEB (ATROVENT) INH SCH ×2 (14:17→19:15)
--- NOTE | 2019-08-09 16:34 | NUR ---
PT SITTING ON SIDE OF BED, NO C/O PAIN, NO SOB.
[2019-08-09 16:50] VITALS: BP_SYST 147
--- NOTE | 2019-08-09 19:36 | NUR ---
CLOSING, PT HAS BEEN STABLE, STILL SOB, GIVEN ALL MEDS AND ANTIBIOTICS. GIVEN PAIN MEDS, RECEIVED BREATHING TREATMENTS. ENDORSED TO NIGHT NURSE NIKHIL
[2019-08-09 20:00] VITALS: BP_SYST 131
--- NOTE | 2019-08-09 20:00 | NUR ---
ASSUMED CARE. RECEIVED ALERT,ORIENTED. AFEBRILE, NOT IN ACUTE DISTRESS. COMPLAINED OF BACK PAIN (03/20) WHICH IS CHRONIC. WITH SALINE LOCK TO THE RIGHT HAND INTACT. SAO2=97% ON 2 LPM O2 VIA NC. AFIB AT LOW 11'S TO 130'S ON THE MONITOR. OTHER VS ARE WITHIN NORMAL LIMITS. WILL CONTINUE TO MONITOR. NEEDS ATTENDED.
[2019-08-09] MEDS: PREGABALIN 75 MG CAPSULE (LYRICA) PO SCH (20:54)
--- NOTE | 2019-08-09 20:55 | NUR ---
NORCO 5/325 MG 1 TABLET PO AND DUE MEDICATIONS GIVEN.
--- NOTE | 2019-08-09 22:09 | NUR ---
AT BEDSIDE EVALUATING PT.,MADE AWARE OF PT'S UNCONTROLLED A.FIB. WITH CE=403'S-130'S. PT. VERBALIZED SOME IMPROVEMENT OF BACK PAIN (6/10).
[2019-08-10] VITALS: BP_SYST 138
--- NOTE | 2019-08-10 | NUR ---
ASLEEP, NOT IN ANY KIND OF DISTRESS. NO PAIN OR DISCOMFORT NOTED. DUE IV ANTIBIOTIC ADMINISTERED. SIDE RAILS UP, CALL LIGHT WITHIN REACH. KEPT WARM AND COMFORTABLE. VS REMAIN STABLE.
[2019-08-10] MEDS: LevALBUTEROL HCL 1.25 MG/0.5 ML *CONC.* VIAL.NEB (XOPENEX CONC.) INH SCH ×4 (00:31→20:25)
[2019-08-10] MEDS: IPRATROPIUM BROM 0.5 MG/2.5 ML VIAL.NEB (ATROVENT) INH SCH ×4 (00:31→20:25)
--- NOTE | 2019-08-10 04:00 | NUR ---
ASLEEP, NOT IN ACUTE DISTRESS. NO PAIN OR DISCOMFORT NOTED. NO CHANGE IN CONDITION.
[2019-08-10] MEDS: PIPERACILLIN/TAZO 3.375/DEX-IS 50 ML IV SCH ×3 (05:51→17:07)
[2019-08-10] MEDS: methylPREDNISolone SOD SUCC/PF 62.5 MG/ML VIAL IVP SCH ×3 (05:52→21:53)
--- NOTE | 2019-08-10 05:52 | NUR ---
AWAKE, DUE MEDICATIONS GIVEN.
--- NOTE | 2019-08-10 07:15 | NUR ---
ENDORSED CARE TO DALTON TOLEDO STABLE.
[2019-08-10 07:29] LABS: BASOPHILS % (AUTO) 0.1 % (0.0-2.0); HEMATOCRIT 35.9 % (36-48); HEMOGLOBIN 11.8 g/dL (12.0-16.0); LYMPHOCYTES # (AUTO) 0.3 K/uL (1.0-5.5); LYMPHOCYTES % (AUTO) 2.2 % (20.5-51.5); MEAN CORPUSCULAR HEMOGLOBIN 32 pg (27-31); MEAN CORPUSCULAR HGB CONC 33 % (32-36); MEAN CORPUSCULAR VOLUME 97 fL (79.0-98.0); MONOCYTES # (AUTO) 0.8 K/uL (0.0-1.0); MONOCYTES % (AUTO) 7.2 % (1.7-9.3); NEUTROPHILS # (AUTO) 10.6 K/uL (1.8-7.7); NEUTROPHILS % (AUTO) 90.5 % (40.0-70.0); PLATELET COUNT (AUTO) 286 K/uL (130-430); RED BLOOD CELL COUNT(AUTO) 3.69 MIL/uL (4.2-6.2); RED CELL DISTRIBUTION WIDTH 16.5 % (9.0-15.0); WHITE BLOOD COUNT (AUTO) 11.7 K/uL (4.8-10.8)
--- NOTE | 2019-08-10 07:45 | NUR ---
OPENING NOTES, SEEN PT IN BED, EYES CLOSED. APPEARS SLEEPING, BREATHING EVEN AND UNLABORED. NO S/S OF PAIN. WILL MONITOR.
[2019-08-10 07:57] LABS: ANION GAP 7 (5-15); CALCIUM 8.6 mg/dL (8.4-11.0); CHLORIDE 101 mmol/L (98-107); CREATININE 0.86 mg/dL (0.55-1.30); GLUCOSE 262 mg/dL (70-99); POTASSIUM 4.2 mmol/L (3.5-5.1); SODIUM SERUM 139 mmol/L (136-145); UREA NITROGEN, BLOOD 22 mg/dL (8-21)
[2019-08-10 08:31] VITALS: BP_SYST 173
[2019-08-10] MEDS: HYDROcodone/ACETAMIN 5-325 MG TAB (NORCO/ VICODIN) PO PRN ×2 (08:44→17:07)
[2019-08-10] MEDS: POTASSIUM CHLORIDE 20 MEQ TAB.PRT.SR PO SCH (08:44)
[2019-08-10] MEDS: METOPROLOL TARTRATE 25 MG TABLET PO SCH ×2 (08:45→20:54)
[2019-08-10] MEDS: ATORVASTATIN 20 MG TABLET PO SCH (08:45)
[2019-08-10] MEDS: DOXYCYCLINE HYCLATE 100 MG CAPSULE PO SCH ×2 (08:45→20:54)
[2019-08-10] MEDS: PANTOPRAZOLE SODIUM 40 MG TAB PO SCH (08:45)
[2019-08-10] MEDS: DILTIAZEM HCL 240 MG CAP.SR.24H PO SCH (08:46)
[2019-08-10] MEDS: FUROSEMIDE 40 MG/4 ML VIAL IVP SCH (08:46)
[2019-08-10] MEDS: APIXABAN 2.5 MG TABLET PO SCH ×2 (08:50→20:56)
--- NOTE | 2019-08-10 08:50 | NUR ---
PT NOW SITTING ON EOB, BREAKFAST SERVED, PT GIVEN AM MEDS. PT ALSO GIVEN PAIN MEDS. WILL CONT TO MONITOR.
[2019-08-10] MEDS: BUDESONIDE 0.5 MG/2 ML AMPUL.NEB INH SCH ×2 (09:38→20:40)
[2019-08-10] MEDS ORDERED: FLUCONAZOLE 200 MG TABLET (DIFLUCAN) PO ONE (10:00)
[2019-08-10] MEDS: NYSTATIN 500,000 UNITS/5 ML UDC PO SCH ×2 (11:48→17:07)
[2019-08-10 12:28] VITALS: BP_SYST 134
--- NOTE | 2019-08-10 15:00 | NUR ---
PT SITTING ON EOB, PT WAS GIVEN SOLUMEDROL. PT NOTED TO BE SOB, PT STATED IT IS GOING BETTER.
[2019-08-10 16:30] VITALS: BP_SYST 122
--- NOTE | 2019-08-10 18:30 | NUR ---
CLOSING NOTES, PT HAS BEEN STABLE THE WHOLE SHIFT, NO FEVER, C/O PAIN AND GIVEN PAIN MEDS, ALL MEDS OFFERED AND TAKEN. PATIENT AMBULATED TO THE BATHROOM WITH FWW. SAFETY PRECAUTION IN PLACE AT ALL TIMES.
--- NOTE | 2019-08-10 19:00 | NUR ---
OPENING NOTES: RECEIVED PATIENT FROM DAY SHIFT NURSE. PATIENT IS AWAKE AND ALERT x4 SITTING UP AT BEDSIDE. PATIENT DENIES ANY PAIN AT THE MOMENT. NO SIGNS OF DISTRESS OR SHORTNESS OF BREATH NOTED. PATIENT IS TOLERATING OXYGEN AT 2 L NASAL CANNULA. IV SITE IS INTACT WITH NO SIGNS OF INFILTRATION. PATIENT IN STABLE CONDITION. SAFETY, FALL, AND ASPIRATION PRECAUTIONS ARE IN PLACE. BED LOCKED IN LOWEST POSITION WITH CALL LIGHT IN REACH. WILL CONTINUE TO MONITOR PATIENT FOR ANY CHANGES.
[2019-08-10 20:24] VITALS: BP_SYST 148
[2019-08-10] MEDS: PREGABALIN 75 MG CAPSULE (LYRICA) PO SCH (20:54)
--- NOTE | 2019-08-10 22:16 | NUR ---
RN ROUNDS: PATIENT IS ASLEEP LAYING DOWN IN BED. PATIENT TOLERATING OXYGEN ON 2 L NASAL CANNULA WITH NO SIGNS OF DISTRESS OR SHORTNESS OF BREATH NOTED. PATIENT IN STABLE CONDITION. WILL CONTINUE TO MONITOR PATIENT FOR ANY CHANGES.
[2019-08-11] VITALS: BP_SYST 158
[2019-08-11] MEDS: PIPERACILLIN/TAZO 3.375/DEX-IS 50 ML IV SCH ×4 (00:06→17:36)
--- NOTE | 2019-08-11 00:06 | NUR ---
RN ROUNDS: PATIENT IS AWAKE AND ALERT x4 SITTING UP IN BED. PATIENT STATES SHE IS HAVING PAIN 6-10. PRN PAIN MEDS GIVEN. PATIENT IS TOLERATING OXYGEN AT 2L NASAL CANNULA WITH NO SIGNS OF DISTRESS OR SHORTNESS OF BREATH NOTED. PATIENT IN STABLE CONDITION. WILL CONTINUE TO MONITOR PATIENT FOR ANY CHANGES.
[2019-08-11] MEDS: NYSTATIN 500,000 UNITS/5 ML UDC PO SCH ×4 (00:07→17:35)
[2019-08-11] MEDS: HYDROcodone/ACETAMIN 5-325 MG TAB (NORCO/ VICODIN) PO PRN ×4 (00:08→22:08)
--- NOTE | 2019-08-11 02:06 | NUR ---
RN ROUNDS: PATIENT IS ASLEEP IN BED. NO SIGNS OF DISTRESS OR SHORTNESS OF BREATH NOTED. PATIENT IN STABLE CONDITION. WILL CONTINUE TO MONITOR PATIENT FOR ANY CHANGES.
--- NOTE | 2019-08-11 03:00 | NUR ---
ASSUMPTION OF CARE: RECEIVED PT A/A/OX4, DX:INADEQUATE VENTILATION, R/T PNU, VSS, BREATH SOUNDS ARE DIMINISHED X 4 LOBES, O2 SAT=96% WHILE ON 2L VIA NC, BREATHING IS UNLABORED, COLOR IS GOOD, SKIN INTACT, WARM, DRY TO TOUCH, NO S/S OF DISTRESS, WILL CONT' TO MONITOR AND ASSESS.
--- NOTE | 2019-08-11 03:28 | NUR ---
ENDORSED CARE TO TRE BOYD. PATIENT IN STABLE CONDITION.
[2019-08-11] MEDS: methylPREDNISolone SOD SUCC/PF 62.5 MG/ML VIAL IVP SCH ×3 (06:24→22:05)
[2019-08-11] MEDS: IPRATROPIUM BROM 0.5 MG/2.5 ML VIAL.NEB (ATROVENT) INH SCH ×3 (06:58→20:04)
[2019-08-11] MEDS: LevALBUTEROL HCL 1.25 MG/0.5 ML *CONC.* VIAL.NEB (XOPENEX CONC.) INH SCH ×3 (06:58→20:04)
[2019-08-11] MEDS: BUDESONIDE 0.5 MG/2 ML AMPUL.NEB INH SCH ×2 (06:58→20:04)
[2019-08-11 08:00] VITALS: BP_SYST 159
--- NOTE | 2019-08-11 08:00 | NUR ---
ASSUMPTION OF CARE: RECEIVED PT A/A/OX4, DX:INADEQUATE VENTILATION, R/T PNU, VSS, BREATH SOUNDS ARE DIMINISHED X 4 LOBES, O2 SAT=96% WHILE ON 2L VIA NC, BREATHING IS UNLABORED, COLOR IS GOOD, SKIN INTACT, WARM, DRY TO TOUCH, NO S/S OF DISTRESS, C/O GENERALIZED PAIN 5/10 VIA NUMERIC SCALE , WILL MEDICATE PER ORDERED BY Lenny, REORIENTED TO UNIT, CALL LIGHT PLACED WITHIN REACH, WILL CONT' TO MONITOR AND ASSESS.
--- NOTE | 2019-08-11 08:30 | NUR ---
PAIN: PT C/O PAIN 5/10 VIA NUMERIC SCALE, MED GIVEN NORCO 5MG/325MG, TOLERATED WELL, CALL LIGHT PLACED WITHIN REACH, WILL CONT' TO MONITOR AND ASSESS.
[2019-08-11] MEDS: ATORVASTATIN 20 MG TABLET PO SCH (08:50)
[2019-08-11] MEDS: METOPROLOL TARTRATE 25 MG TABLET PO SCH ×2 (08:50→20:43)
[2019-08-11] MEDS: DILTIAZEM HCL 240 MG CAP.SR.24H PO SCH (08:51)
[2019-08-11] MEDS: POTASSIUM CHLORIDE 20 MEQ TAB.PRT.SR PO SCH (08:51)
[2019-08-11] MEDS: DOXYCYCLINE HYCLATE 100 MG CAPSULE PO SCH ×2 (08:52→20:43)
[2019-08-11] MEDS: PANTOPRAZOLE SODIUM 40 MG TAB PO SCH (08:52)
[2019-08-11] MEDS: FUROSEMIDE 40 MG/4 ML VIAL IVP SCH (08:53)
[2019-08-11 08:54] LABS: ANION GAP 4 (5-15); CALCIUM 8.9 mg/dL (8.4-11.0); CHLORIDE 97 mmol/L (98-107); GLUCOSE 258 mg/dL (70-99); POTASSIUM 4.3 mmol/L (3.5-5.1); SODIUM SERUM 133 mmol/L (136-145); UREA NITROGEN, BLOOD 27 mg/dL (8-21)
[2019-08-11] MEDS: APIXABAN 2.5 MG TABLET PO SCH ×2 (08:55→20:44)
--- NOTE | 2019-08-11 09:00 | NUR ---
KNOWLEDGE ARCHITECT: MORNING MEDS GIVEN, PER ORDERED BY Lenny, TOLERATED WELL, WILL CONT' TO MONITOR AND ASSESS.
--- NOTE | 2019-08-11 10:00 | NUR ---
VISIT: DR. FREIRE AT BEDSIDE FOR ASSESSMENT OF PT, DISCUSSED POC, PT VERBALIZES UNDERSTANDING, NEW ORDER GIVEN, WILL CONT' TO MONITOR AND ASSESS.
--- NOTE | 2019-08-11 11:43 | NUR ---
Nutrition Update Marco Scale 18 noted. Pt admitted for pneumonia. Diet: cardiac BMI: 34 kg/m2 RD to follow per nutrition care standards.
[2019-08-11 12:00] VITALS: BP_SYST 138
--- NOTE | 2019-08-11 12:00 | NUR ---
NURSES NOTES: PT ASLEEP IN POSITION OF COMFORT, NO S/S OF DISTRESS, NO CHANGES IN CONDITION NOTED, REMAINS STABLE, NEEDS MET, WILL CONT' OMONITOR AND ASSESS.
--- NOTE | 2019-08-11 14:50 | NUR ---
PAIN: PT C/O PAIN 5/10 VIA NUMERIC SCALE, MED GIVEN NORCO 5MG/325MG, TOLERATED WELL, CALL LIGHT PLACED WITHIN REACH, WILL CONT' TO MONITOR AND ASSESS.
--- NOTE | 2019-08-11 15:00 | NUR ---
VISIT: AT BEDSIDE FOR ASSESSMENT OF PT, DISCUSSED POC, PT VERBALIZES UNDERSTANDING, NEW ORDER GIVEN, WILL CONT' TO MONITOR AND ASSESS.
[2019-08-11 16:00] VITALS: BP_SYST 138
--- NOTE | 2019-08-11 18:00 | NUR ---
END OF SHIFT: PT REMAINS STABLE, NO CHANGES IN CONDITION NOTED, SITTING UP AT BEDSIDE EATING DINNER MEAL, TOLERATING WELL, CALL LIGHT PLACED WITHIN REACH, NEEDS MET, WILL CONT' TO MONITOR, WILL ENDORSE TO CONSTRUCTION ANALYST NURSE.
--- NOTE | 2019-08-11 19:40 | NUR ---
ROUNDS PATIENT RESTING COMFORTABLY IN BED, NOT IN DISTRESS, VITALS STABLE. DENIES ANY PAIN AND DISCOMFORT AT THIS TIME. ASSESSMENT DONE AND DOCUMENTED. SEE FLOWSHEET. NEEDS ATTENDED TO. SAFETY AND FALL MEASURES IN PLACED. BED IN LOW AND LOCKED POSITION. CALL LIGHT PLACED WITHIN REACH.
[2019-08-11 20:00] VITALS: BP_SYST 140
[2019-08-11] MEDS: PREGABALIN 75 MG CAPSULE (LYRICA) PO SCH (20:43)
--- NOTE | 2019-08-11 21:15 | NUR ---
MEDICATION DUE MEDICATIONS GIVEN SCHEDULED, TOLERATED WELL. WILL CONTINUE TO MONITOR.
[2019-08-12] VITALS: BP_SYST 136
--- NOTE | 2019-08-12 00:13 | NUR ---
PATIENT RESTING: Patient resting quietly. No acute distress noted. Vital signs within normal range.
[2019-08-12] MEDS: PIPERACILLIN/TAZO 3.375/DEX-IS 50 ML IV SCH ×4 (00:41→18:54)
[2019-08-12] MEDS: NYSTATIN 500,000 UNITS/5 ML UDC PO SCH ×4 (00:45→18:54)
[2019-08-12] MEDS: LevALBUTEROL HCL 1.25 MG/0.5 ML *CONC.* VIAL.NEB (XOPENEX CONC.) INH SCH ×4 (01:00→19:02)
[2019-08-12] MEDS: IPRATROPIUM BROM 0.5 MG/2.5 ML VIAL.NEB (ATROVENT) INH SCH ×4 (01:00→19:02)
--- NOTE | 2019-08-12 02:17 | NUR ---
ROUNDS PATIENT ASLEEP, RESPIRATIONS EVEN AND UNLABORED, WILL CONTINUE TO MONITOR.
--- NOTE | 2019-08-12 04:12 | NUR ---
PATIENT RESTING: Patient resting quietly. No acute distress noted. Vital signs within normal range.
[2019-08-12] MEDS: methylPREDNISolone SOD SUCC/PF 62.5 MG/ML VIAL IVP SCH (05:48)
[2019-08-12] MEDS: HYDROcodone/ACETAMIN 5-325 MG TAB (NORCO/ VICODIN) PO PRN ×3 (06:02→20:08)
[2019-08-12 06:34] LABS: BASOPHILS % (AUTO) 0.1 % (0.0-2.0); HEMATOCRIT 37.4 % (36-48); HEMOGLOBIN 12.2 g/dL (12.0-16.0); LYMPHOCYTES # (AUTO) 0.3 K/uL (1.0-5.5); MEAN CORPUSCULAR HEMOGLOBIN 32 pg (27-31); MEAN CORPUSCULAR HGB CONC 33 % (32-36); MEAN CORPUSCULAR VOLUME 97 fL (79.0-98.0); MONOCYTES # (AUTO) 0.7 K/uL (0.0-1.0); MONOCYTES % (AUTO) 5.4 % (1.7-9.3); NEUTROPHILS # (AUTO) 12.7 K/uL (1.8-7.7); NEUTROPHILS % (AUTO) 92.5 % (40.0-70.0); PLATELET COUNT (AUTO) 280 K/uL (130-430); RED BLOOD CELL COUNT(AUTO) 3.86 MIL/uL (4.2-6.2); RED CELL DISTRIBUTION WIDTH 16.4 % (9.0-15.0); WHITE BLOOD COUNT (AUTO) 13.7 K/uL (4.8-10.8)
--- NOTE | 2019-08-12 06:59 | NUR ---
CLOSING NOTES PATIENT AWAKE, VITALS STABLE, ASSISTED PATIENT TO THE BATHROOM. NO COMPLAINTS AT THIS TIME. ALL NEEDS ATTENDED TO. SAFETY MEASURES MAINTAINED. CALL LIGHT PLACED WITHIN REACH.
[2019-08-12 07:14] LABS: ANION GAP 7 (5-15); CHLORIDE 97 mmol/L (98-107); CREATININE 0.91 mg/dL (0.55-1.30); GLUCOSE 257 mg/dL (70-99); POTASSIUM 4.6 mmol/L (3.5-5.1); SODIUM SERUM 135 mmol/L (136-145); UREA NITROGEN, BLOOD 28 mg/dL (8-21)
[2019-08-12] MEDS: BUDESONIDE 0.5 MG/2 ML AMPUL.NEB INH SCH ×2 (07:21→19:02)
[2019-08-12 07:31] LABS: C-REACTIVE PROTEIN QUANT < 0.2 mg/dL (0-0.5)
[2019-08-12 08:00] VITALS: BP_SYST 154
--- NOTE | 2019-08-12 08:00 | NUR ---
initial notes rec patient awake alert with ivl on the r hand intact. no infiltration noted. with o2 at 2 liters via nasal cannula. no sob noted. bed to the lowest position and side rails up and locked. call light within reached. will continue to monitor patient.
[2019-08-12] MEDS: ATORVASTATIN 20 MG TABLET PO SCH (08:55)
[2019-08-12] MEDS: POTASSIUM CHLORIDE 20 MEQ TAB.PRT.SR PO SCH (08:56)
[2019-08-12] MEDS: DILTIAZEM HCL 240 MG CAP.SR.24H PO SCH (08:56)
[2019-08-12] MEDS: PANTOPRAZOLE SODIUM 40 MG TAB PO SCH (08:56)
[2019-08-12] MEDS: DOXYCYCLINE HYCLATE 100 MG CAPSULE PO SCH ×2 (08:56→20:09)
[2019-08-12] MEDS: METOPROLOL TARTRATE 25 MG TABLET PO SCH ×2 (08:57→20:10)
[2019-08-12] MEDS: FUROSEMIDE 40 MG/4 ML VIAL IVP SCH (08:58)
[2019-08-12] MEDS: APIXABAN 2.5 MG TABLET PO SCH ×2 (09:01→20:11)
[2019-08-12 09:13] LABS: ERYTHROCYTE SEDIMENTATION RATE 5 MM/HR (0-20)
--- NOTE | 2019-08-12 10:00 | NUR ---
rounds seen by dr hatfield. due meds aerlizzie delaney and rayna well. no sob noted.
[2019-08-12 12:54] VITALS: BP_SYST 143
[2019-08-12 16:44] VITALS: BP_SYST 135
--- NOTE | 2019-08-12 18:30 | NUR ---
closing notes pt ambulates to the br at intervals. no sob noted. bed to the lowest position and side rails up and locked. call light within reached.
--- NOTE | 2019-08-12 19:35 | NUR ---
ROUNDS PATIENT RESTING COMFORTABLY IN BED, NOT IN DISTRESS, VITALS STABLE. DENIES ANY PAIN AND DISCOMFORT AT THIS TIME. ASSESSMENT DONE AND DOCUEMNTED. SEE FLOWSHEET. NEEDS ATTENDED TO. SAFETY AND FALL MEASURES IN PLACED. CALL LIGHT PLACED WITHIN REACH.
[2019-08-12 19:50] VITALS: BP_SYST 141
[2019-08-12] MEDS: methylPREDNISolone SOD SUCC 40 MG/ML VIAL IVP SCH (20:09)
[2019-08-12] MEDS: PREGABALIN 75 MG CAPSULE (LYRICA) PO SCH (20:09)
--- NOTE | 2019-08-12 21:15 | NUR ---
MEDICATION DUE MEDICATIONS GIVEN SCHEDULED, TOLERATED WELL. WILL CONTINUE TO MONITOR.
[2019-08-13] VITALS: BP_SYST 133
--- NOTE | 2019-08-13 00:13 | NUR ---
PATIENT RESTING: Patient resting quietly. No acute distress noted. Vital signs within normal range.
[2019-08-13] MEDS: NYSTATIN 500,000 UNITS/5 ML UDC PO SCH ×5 (00:31→23:14)
[2019-08-13] MEDS: PIPERACILLIN/TAZO 3.375/DEX-IS 50 ML IV SCH ×5 (00:31→23:14)
--- NOTE | 2019-08-13 02:13 | NUR ---
ROUNDS PATIENT ASLEEP, RESPIRATIONS EVEN AND UNLABORED. WILL CONTINUE TO MONITOR.
--- NOTE | 2019-08-13 04:12 | NUR ---
PATIENT RESTING: Patient resting quietly. No acute distress noted. Vital signs within normal range.
[2019-08-13] MEDS: HYDROcodone/ACETAMIN 5-325 MG TAB (NORCO/ VICODIN) PO PRN ×3 (05:52→19:08)
[2019-08-13] MEDS: methylPREDNISolone SOD SUCC 40 MG/ML VIAL IVP SCH ×2 (05:54→18:54)
--- NOTE | 2019-08-13 06:39 | NUR ---
CLOSING NOTES PATIENT AWAKE, SITTING UP IN BED, VITALS STABLE. NO PAIN AT THIS TIME. ALL NEEDS ATTENDED TO. SAFETY AND FALL MEASURES MAINTAINED. CALL LIGHT PLACED WITHIN REACH.
[2019-08-13] MEDS: BUDESONIDE 0.5 MG/2 ML AMPUL.NEB INH SCH ×2 (07:33→20:38)
[2019-08-13] MEDS: LevALBUTEROL HCL 1.25 MG/0.5 ML *CONC.* VIAL.NEB (XOPENEX CONC.) INH SCH ×3 (07:33→20:43)
[2019-08-13] MEDS: IPRATROPIUM BROM 0.5 MG/2.5 ML VIAL.NEB (ATROVENT) INH SCH ×3 (07:33→20:43)
[2019-08-13 08:00] VITALS: BP_SYST 138
--- NOTE | 2019-08-13 08:02 | NUR ---
initial notes rec patient awake alert with ivl on the r forearm intact. no infiltration noted. resp easy and unlabored. with o2 at 2 kiters via nasal cannula. no sob noted. bed to the lowest position and side rails up and locked. call light withn reached and knows when to call for assistance.
[2019-08-13 08:20] LABS: ANION GAP 6 (5-15); CALCIUM 9.1 mg/dL (8.4-11.0); CHLORIDE 99 mmol/L (98-107); CREATININE 0.89 mg/dL (0.55-1.30); GLUCOSE 265 mg/dL (70-99); POTASSIUM 4.7 mmol/L (3.5-5.1); SODIUM SERUM 139 mmol/L (136-145); UREA NITROGEN, BLOOD 28 mg/dL (8-21)
[2019-08-13] MEDS: DILTIAZEM HCL 240 MG CAP.SR.24H PO SCH (09:18)
[2019-08-13] MEDS: FUROSEMIDE 40 MG/4 ML VIAL IVP SCH (09:19)
[2019-08-13] MEDS: ATORVASTATIN 20 MG TABLET PO SCH (09:20)
[2019-08-13] MEDS: POTASSIUM CHLORIDE 20 MEQ TAB.PRT.SR PO SCH (09:20)
[2019-08-13] MEDS: PANTOPRAZOLE SODIUM 40 MG TAB PO SCH (09:21)
[2019-08-13] MEDS: DOXYCYCLINE HYCLATE 100 MG CAPSULE PO SCH ×2 (09:21→20:24)
[2019-08-13] MEDS: METOPROLOL TARTRATE 25 MG TABLET PO SCH ×2 (09:22→20:24)
[2019-08-13] MEDS: APIXABAN 2.5 MG TABLET PO SCH ×2 (09:23→20:26)
--- NOTE | 2019-08-13 10:00 | NUR ---
rounds due meds given and rayna well. call light within reached. resting comfortably at bedside.
--- NOTE | 2019-08-13 12:29 | NUR ---
rounds iv restared by deepthi on the l forearm and patent. seen by dr aguayo at bedside. no sob noted. call light within reached.
--- NOTE | 2019-08-13 14:00 | NUR ---
rounds ambulated on the hallway with her o2 and hardly tolerated. sat was 88 or 89% no osb noted. call light wihtn reached.
--- NOTE | 2019-08-13 14:00 | NUR ---
rounds seen by dr hatfield. no sob noted. call light within reached.
[2019-08-13 15:32] VITALS: BP_SYST 144
--- NOTE | 2019-08-13 15:49 | NUR ---
Nutrition Assessment (short note d/t high patient load) A - RD reviewed pertinent nutrition-related info via EMR (physician notes/nursing notes/labs/meds/nursing care trends/care activity). Admission Dx: Pneumonia PMH: pneumonia, CHF, atr fibr, COPD, HTN per physician notes Current Diet Order/Nutrition Support: Cardiac x5 days Ht: 5'1"/61" Wt: 180#/82 kg IBW: 105#/48 kg %IBW: 171% Adj IBW (obesity): 124#/56 kg UBW: 196#/89 kg %UBW: 92% BMI: 34 kg/m2 (obesity class I) Subjective Info: Pt seen resting in bed at time of RD visit. Pt reported that she has been eating "ok." Pt denied any chewing/swallowing problems, and attested to bottom dentures only, and her own set of upper teeth. Pt reported use of MVI, VIT E, and potassium. Pt stated she lives at home w/ her son who does a lot of the meal preparations. Pt stated that she lost wt during the course of recent sickness -- pt did not disclose timeframe. Noted 16# wt loss/8% wt change within unknown timeframe. Pt stated that she has been following a no salt diet for the past month. Anthropometrics verified. RD offered nutrition education -- pt accepted. Please refer to interdisciplinary teaching record for details. 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 I - Recommend continuing cardiac diet. RD to provide cardiac MNT. M - Monitor appetite and PO intakes w/ goal of pt meeting at least 75% of estimated nutritional needs, labs trending WNL, normal GI function, and skin integrity/wt maintenance E - Low risk; F/U within 7 days
--- NOTE | 2019-08-13 15:56 | NUR ---
Dietitian Recommendations * Recommend continuing cardiac diet. RD to provide cardiac MNT. LP, RD Please refer to Nutrition Assessment for details.
--- NOTE | 2019-08-13 18:30 | NUR ---
closing notes as per patient dr hatfield came and told her will be staying for the weekend.resting comofrtably. no osb noted. due meds given and rayna well. no sob noted. call light within reached.
--- NOTE | 2019-08-13 19:30 | NUR ---
OPENING NOTES Pt and endorsement received from day shift nurse. Pt is AAOx4, sitting on bedside. Pt on O2 inhalation at 2L via nasal cannula. Pt on saline lock on left forearm G22. No complains of pain or discomfort. No signs of acute distress or SOB noted. Encouraged to use call light when needed. Safety precautions in place with 3 side rails up, wheels locked, and bed in lowest level. Call light with pt. Will continue to monitor.
[2019-08-13 20:20] VITALS: BP_SYST 153
[2019-08-13] MEDS: PREGABALIN 75 MG CAPSULE (LYRICA) PO SCH (20:24)
--- NOTE | 2019-08-13 20:30 | NUR ---
ROUNDS All due meds given and pt tolerated well. No complains of pain and signs of acute distress noted. Safety precautions in place and call light with pt. Will continue to monitor.
--- NOTE | 2019-08-13 23:15 | NUR ---
ROUNDS Pt is resting in bed with both eyes closed, with visible chest rise and fall with non-labored breathing noted. Pt is easily arousable. IVPB is infusing well. No complains of pain and no signs of acute distress noted. Safety precautions in place and call light with pt. Will continue to monitor.
[2019-08-14 00:03] VITALS: BP_SYST 144
--- NOTE | 2019-08-14 02:10 | NUR ---
ROUNDS Pt is resting in bed with both eyes closed, with visible chest rise and fall with non-labored breathing noted. No signs of acute distress or SOB noted. No needs at this time. Safety precautions in place and call light with pt. Will continue to monitor.
--- NOTE | 2019-08-14 04:23 | NUR ---
ROUNDS Pt is resting in bed with both eyes closed, with visible chest rise and fall with non-labored breathing noted. Pt is easily arousable. No complains of pain and no signs of acute distress noted. Safety precautions in place and call light with pt. Will continue to monitor.
[2019-08-14] MEDS: PIPERACILLIN/TAZO 3.375/DEX-IS 50 ML IV SCH ×2 (05:04→11:21)
[2019-08-14] MEDS: NYSTATIN 500,000 UNITS/5 ML UDC PO SCH ×2 (05:04→11:22)
[2019-08-14] MEDS: HYDROcodone/ACETAMIN 5-325 MG TAB (NORCO/ VICODIN) PO PRN (05:11)
[2019-08-14] MEDS: methylPREDNISolone SOD SUCC 40 MG/ML VIAL IVP SCH (06:00)
[2019-08-14] MEDS: IPRATROPIUM BROM 0.5 MG/2.5 ML VIAL.NEB (ATROVENT) INH SCH (06:10)
[2019-08-14] MEDS: LevALBUTEROL HCL 1.25 MG/0.5 ML *CONC.* VIAL.NEB (XOPENEX CONC.) INH SCH (06:10)
--- NOTE | 2019-08-14 06:29 | NUR ---
CLOSING NOTES Pt is AAOx4, sitting on bedside. Pt on o2 inhalation at 2L via nasal cannula. No complains of pain or discomfort. No signs of acute distress or SOB noted. All needs attended throughout the shift. Safety precautions maintained with 3 side rails up, wheels locked, and bed in lowest level. Call light with pt. Will endorse to day shift nurse.
[2019-08-14] MEDS: BUDESONIDE 0.5 MG/2 ML AMPUL.NEB INH SCH (06:31)
[2019-08-14 07:03] LABS: ANION GAP 5 (5-15); CALCIUM 8.7 mg/dL (8.4-11.0); CHLORIDE 99 mmol/L (98-107); CREATININE 0.84 mg/dL (0.55-1.30); GLUCOSE 270 mg/dL (70-99); POTASSIUM 4.5 mmol/L (3.5-5.1); SODIUM SERUM 136 mmol/L (136-145); UREA NITROGEN, BLOOD 31 mg/dL (8-21)
--- NOTE | 2019-08-14 07:25 | NUR ---
opening note patient is sitting on the edge of the bed, alert and oriented, educated forest economics professor light system and plan of care, patient verbalized understanding, on 2L nasal cannula, no signs of distress at this time, IV dressing secured, no other needs addressed at this time, bed in lowest position, brake armed, two side rails up, call light within reach, bed alarm disarmed at this time because patient is sitting on the edge of the bed, verbalized understanding that she needs to call for assistance to get up or walk, fall/safety precautions in place.
[2019-08-14 08:00] VITALS: BP_SYST 135
[2019-08-14] MEDS: DILTIAZEM HCL 240 MG CAP.SR.24H PO SCH (08:14)
[2019-08-14] MEDS: ATORVASTATIN 20 MG TABLET PO SCH (08:14)
[2019-08-14] MEDS: POTASSIUM CHLORIDE 20 MEQ TAB.PRT.SR PO SCH (08:14)
[2019-08-14] MEDS: METOPROLOL TARTRATE 25 MG TABLET PO SCH (08:15)
[2019-08-14] MEDS: DOXYCYCLINE HYCLATE 100 MG CAPSULE PO SCH (08:15)
[2019-08-14] MEDS: PANTOPRAZOLE SODIUM 40 MG TAB PO SCH (08:15)
[2019-08-14] MEDS: FUROSEMIDE 40 MG/4 ML VIAL IVP SCH (08:15)
[2019-08-14] MEDS: APIXABAN 2.5 MG TABLET PO SCH (08:16)
[2019-08-14] MEDS ORDERED: PREDNISONE 20 MG TABLET PO ONE (10:30)
--- NOTE | 2019-08-14 10:36 | NUR ---
prednisone patient is sitting on the edge of the bed, educated on medication use and side effects, patient verbalized understanding, Dr Bruner cleared patient for discharged, no other needs at this time, fall/safety precautions in place.
[2019-08-14 11:11] VITALS: BP_SYST 135
[2019-08-14 12:00] VITALS: BP_SYST 168
--- NOTE | 2019-08-14 12:00 | NUR ---
rounds patient sitting on the edge of the bed, no signs of distress at this time, no needs addressed at this time, fall/safety precautions in place.
[2019-08-14] MEDS ORDERED: PRED20TA PO (14:00)
--- NOTE | 2019-08-14 14:15 | NUR ---
D/C Patient and CHF protocol. Patient given medication reconciliation form and D/C instructions. Exit Care provided. Patient verbalized understanding. MD discussed with patient the results and treatment provided. Ambulatory with steady gait for discharge to home. Patient in stable condition, ID band removed. IV catheter removed, intact and dressing applied, no active bleeding. Rx of prednisone given. Patient educated on pain management. All belongings sent with patient. CHF Protocol, PCP's office close for the weekend. Will leave information for charge nurse to follow up with appointment.
[2019-08-15] MEDS ORDERED: PREDNISONE 20 MG TABLET PO SCH (09:00)
--- NOTE | 2019-08-16 10:51 | NUR ---
CHF protocol: Call Dr. Masters's office to make appointment after discharge on Friday08/18/2019 at 1530 for the patient and call the patient for that, but she has said that she is in another hospital now , because she fail.
== END 2019-08-14 14:15 | disposition home or self-care (01) | DRG 291 ==
LOC: SED 19:08 → STU 23:31
PROVIDERS: ADMIT Internal Medicine Hospice and Palliative Medicine; ATTEND Internal Medicine Hospice and Palliative Medicine
DX: I11.0 Hypertensive heart disease with heart failure (principal); J96.20 Acute and chronic respiratory failure, unspecified whether with hypoxia or hypercapnia; J44.0 Chronic obstructive pulmonary disease with (acute) lower respiratory infection; E87.1 Hypo-osmolality and hyponatremia; E87.2 Acidosis; I48.20 Chronic atrial fibrillation, unspecified; J44.1 Chronic obstructive pulmonary disease with (acute) exacerbation; B37.0 Candidal stomatitis; I50.33 Acute on chronic diastolic (congestive) heart failure; D64.9 Anemia, unspecified; E78.5 Hyperlipidemia, unspecified; K59.00 Constipation, unspecified; M35.3 Polymyalgia rheumatica; Z77.090 Contact with and (suspected) exposure to asbestos; E66.9 Obesity, unspecified; Z79.01 Long term (current) use of anticoagulants; Z79.899 Other long term (current) drug therapy; Z82.49 Family history of ischemic heart disease and other diseases of the circulatory system; Z85.41 Personal history of malignant neoplasm of cervix uteri; Z86.718 Personal history of other venous thrombosis and embolism; Z86.72 Personal history of thrombophlebitis; Z87.01 Personal history of pneumonia (recurrent); Z87.891 Personal history of nicotine dependence; Z88.1 Allergy status to other antibiotic agents; Z90.710 Acquired absence of both cervix and uterus; Z99.81 Dependence on supplemental oxygen; Z68.35 Body mass index [BMI] 35.0-35.9, adult
CPT/HCPCS: 36415; 71045; 80048; 80053; 81003; 83605; 83880; 84484; 85025; 85610-TC; 85651-TC; 85730-TC; 86140; 87040-TC; 87081; 93005; 94640; 94760; 96374; 96375; 99285; C9113; G0378; J1030; J1940; J2543; J2930; J7030; J7512; J7612; J7626

== ENCOUNTER 2019-11-12 17:07 | Inpatient (IN) | payer OTHER ==
[~2019-11-12] VITALS: Ht 154.9 cm; Wt 80.7 kg
[~2019-11-12 17:07] MED LIST changes: -DILT180C67 PO; -DOXY100C PO; -DOXY100T2 PO; -FLUC150T PO; -HYDR-4272 PO; -LIP20 PO; -METH4TAB3 PO; -POTA10TA15 PO; +POTA20TA83 PO
--- NOTE | 2019-11-12 17:15 | NUR ---
Placed in room 4 . Placed on panel monitor, blood pressure machine and pulse oximeter. To gown for exam. Side rails up.
[2019-11-12 17:16] VITALS: BP_SYST 159
--- NOTE | 2019-11-12 17:20 | NUR ---
# 22 gauge angiocath placed to right hand. Use of asceptic technique. Opsite placed over site. Blood return noted. Blood for lab drawn from site. Flushed with 10 cc of normal saline. No evidence of infiltration noted. Patient tolerated well. Please disregard prior IV insertion note
--- NOTE | 2019-11-12 17:20 | NUR ---
# 20 gauge angiocath placed to right hand. Use of asceptic technique. Opsite placed over site. Blood return noted. Blood for lab drawn from site. Flushed with 10 cc of normal saline. No evidence of infiltration noted. Patient tolerated well.
--- NOTE | 2019-11-12 17:25 | NUR ---
pt arrives from home w/ c/o LLE swelling and pain. Pt has a wound to the LLE, area is tender and warm to the touch. Pt is AAOx3. O2 is 95% on 3l, pt uses o2 at home. phototypesetting equipment monitor placed. Will continue to monitor
[2019-11-12] MEDS ORDERED: cefTRIAXone 1 GM IVPB PREMIX 50 ML IV ONE (17:45)
--- NOTE | 2019-11-12 17:45 | NUR ---
ER Dr. Garcia at bedside examining patient.
--- NOTE | 2019-11-12 18:00 | NUR ---
[place] IVPB given, blood cx priorly drawn
[2019-11-12] MEDS: ACETAMINOPHEN 500 MG TABLET PO ONE ×2 (18:03→18:11)
[2019-11-12 18:23] LABS: BASOPHILS # (AUTO) 0.1 K/uL (0.0-0.2); BASOPHILS % (AUTO) 0.8 % (0.0-2.0); HEMATOCRIT 36.9 % (36-48); HEMOGLOBIN 11.3 g/dL (12.0-16.0); LYMPHOCYTES # (AUTO) 0.6 K/uL (1.0-5.5); LYMPHOCYTES % (AUTO) 4.3 % (20.5-51.5); MEAN CORPUSCULAR HEMOGLOBIN 26 pg (27-31); MEAN CORPUSCULAR HGB CONC 31 % (32-36); MEAN CORPUSCULAR VOLUME 86 fL (79.0-98.0); NEUTROPHILS # (AUTO) 12.8 K/uL (1.8-7.7); NEUTROPHILS % (AUTO) 87.9 % (40.0-70.0); PLATELET COUNT (AUTO) 397 K/uL (130-430); RED BLOOD CELL COUNT(AUTO) 4.29 MIL/uL (4.2-6.2); RED CELL DISTRIBUTION WIDTH 19.1 % (9.0-15.0); WHITE BLOOD COUNT (AUTO) 14.5 K/uL (4.8-10.8)
[2019-11-12 18:37] LABS: ANION GAP 7 (5-15); CALCIUM 8.9 mg/dL (8.4-11.0); CHLORIDE 96 mmol/L (98-107); CREATININE 0.79 mg/dL (0.55-1.30); GLUCOSE 101 mg/dL (70-99); POTASSIUM 3.8 mmol/L (3.5-5.1); SODIUM SERUM 135 mmol/L (136-145); UREA NITROGEN, BLOOD 11 mg/dL (8-21)
[2019-11-12 18:39] LABS: ALANINE AMINOTRANSFERASE 26 U/L (12-78); ALBUMIN 3.3 g/dL (3.4-4.8); ASPARTATE AMINOTRANSFERASE 19 U/L (10-37); TOTAL BILIRUBIN 1.2 mg/dL (0.0-1.0)
--- NOTE | 2019-11-12 18:43 | NUR ---
Performed a straight cath to collect a urine sample. Patient tolerated procedure well. Sample sent to lab.
[2019-11-12 19:05] LABS: BILIRUBIN,URINE NEGATIVE (NEGATIVE); BLOOD, URINE 1+ (NEGATIVE); CLARITY/URINE CLEAR (CLEAR); COLOR,URINE YELLOW (YELLOW); GLUCOSE,URINE NEGATIVE (NEGATIVE); KETONES,URINE NEGATIVE (NEGATIVE); LEUKOCYTE ESTERASE ,URINE NEGATIVE (NEGATIVE); NITRITE, URINE NEGATIVE (NEGATIVE); PROTEIN URINE NEGATIVE (NEGATIVE); UROBILINOGEN,URINE 0.2 (0.2-1.0)
[2019-11-12 19:15] LABS: BACTERIA,URINE FEW /HPF (None Seen); WBC,URINE 0-3 /HPF (0-3)
--- NOTE | 2019-11-12 19:20 | NUR ---
Medication reconciliation completed with information provided by patient. Any prior medication reconciliation on file was reviewed and corrected.
--- NOTE | 2019-11-12 19:22 | NUR ---
report given to Ivory TOLEDO. Pt is in stable condition
--- NOTE | 2019-11-12 19:25 | NUR ---
Patient's code status is FULL CODE paperwork completed and placed in chart.
--- NOTE | 2019-11-12 19:28 | NUR ---
RECEIEVED REPORT FROM TRE JONES FOR CONTINUATION OF CARE.
--- NOTE | 2019-11-12 20:24 | NUR ---
Patient will be admitted to care of Dr. Story. Admitted to medsurg unit. Will go to room 101B. Belongings list completed. Complete and up to date summary report printed. SBAR report given to TRE Mayes with opportunity for questions.
--- NOTE | 2019-11-12 20:27 | NUR ---
[facility] IV present no sign or symptom of infiltration.
--- NOTE | 2019-11-12 20:47 | NUR ---
ADMIT NOTE Received pt from ER to the floor with a diagnosis of cellulitis. Admission process initiated. patient oriented to pain management, safety and call light-teach back done.
[2019-11-12 20:49] VITALS: BP_SYST 141
--- NOTE | 2019-11-12 22:15 | NUR ---
Assessment Received SBAR report from Gerber Shrestha RN. Patient is awake, AOx4, sitting in bed, no distress, nonlabored breathing on 3L NL. Assessment complete. Patient reports pain to left leg is 7/10 and adds that she takes [place] at night to help with pain. No pain medication orders, will page .
--- NOTE | 2019-11-12 22:24 | NUR ---
Dr. Trevor Murray is here to see patient and placing orders.
[2019-11-12] MEDS ORDERED: APIXABAN 2.5 MG TABLET PO SCH (23:00)
[2019-11-12] MEDS ORDERED: HYDROcodone/ACETAMIN 5-325 MG TAB (NORCO/ VICODIN) PO PRN (23:00)
[2019-11-12] MEDS ORDERED: ALBUTEROL SULFATE 0.083% 2.5 MG/3 ML VIAL.NEB INH PRN (23:00)
[2019-11-12] MEDS ORDERED: ALBUTEROL MDI INHALATION 8 GM INH INH PRN (23:00)
[2019-11-12 23:13] VITALS: BP_SYST 141
[2019-11-12] MEDS ORDERED: APIXABAN 2.5 MG TABLET PO ONE (23:30)
[2019-11-12] MEDS: HYDROcodone/ACETAMIN 5-325 MG TAB (NORCO/ VICODIN) PO PRN (23:53)
[2019-11-12] MEDS: PIPERACILLIN/TAZO 3.375/DEX-IS 50 ML IV SCH (23:56)
--- NOTE | 2019-11-12 23:56 | NUR ---
Meds Patient was given scheduled Eliquis and [place] for pain. IV antibiotic, Zosyn also administered and educated on side effects; she verbalized understanding. She was out of bed for use of the bedside commode and returned to bed. No further needs. Safety precautions in place and call light near.
--- NOTE | 2019-11-13 | NUR ---
Refused breathing tx RT at bedside for breathing treatment and patient refused, stating she wants to sleep and will have treatment in morning.
[2019-11-13 00:09] VITALS: BP_SYST 147
[2019-11-13] MEDS ORDERED: PIPERACILLIN/TAZOBACTAM 3.375 GM/VIAL (ZOSYN) IV ONE (00:10)
--- NOTE | 2019-11-13 02:16 | NUR ---
RN rounds Patient resting in comfortable position and IV is SL. No sign of distress, nonlabored breathing. will continue to monitor.
[2019-11-13] MEDS: PIPERACILLIN/TAZO 3.375/DEX-IS 50 ML IV SCH ×3 (06:35→18:40)
--- NOTE | 2019-11-13 06:44 | NUR ---
closing note Patient resting in comfortable position, no SOB or sign of distress. IV antibiotic infusing and tolerating. Needs met throughout shift, will endorse to incoming nurse.
--- NOTE | 2019-11-13 07:10 | NUR ---
Pain med patient requesting pain med for back and LLE pain, [place] 5-325 given as ordered.
[2019-11-13 07:11] LABS: BASOPHILS # (AUTO) 0.1 K/uL (0.0-0.2); BASOPHILS % (AUTO) 0.6 % (0.0-2.0); EOSINOPHILS # (AUTO) 0.1 K/uL (0.0-0.4); EOSINOPHILS % (AUTO) 1.2 % (0.0-4.0); HEMATOCRIT 36.2 % (36-48); LYMPHOCYTES # (AUTO) 0.9 K/uL (1.0-5.5); LYMPHOCYTES % (AUTO) 7.6 % (20.5-51.5); MEAN CORPUSCULAR HEMOGLOBIN 26 pg (27-31); MEAN CORPUSCULAR HGB CONC 30 % (32-36); MEAN CORPUSCULAR VOLUME 87 fL (79.0-98.0); MONOCYTES # (AUTO) 0.9 K/uL (0.0-1.0); MONOCYTES % (AUTO) 7.4 % (1.7-9.3); NEUTROPHILS # (AUTO) 10.1 K/uL (1.8-7.7); NEUTROPHILS % (AUTO) 83.2 % (40.0-70.0); PLATELET COUNT (AUTO) 373 K/uL (130-430); RED BLOOD CELL COUNT(AUTO) 4.17 MIL/uL (4.2-6.2); RED CELL DISTRIBUTION WIDTH 19.1 % (9.0-15.0); WHITE BLOOD COUNT (AUTO) 12.1 K/uL (4.8-10.8)
[2019-11-13 07:13] LABS: ALBUMIN 2.9 g/dL (3.4-4.8); UREA NITROGEN, BLOOD 9 mg/dL (8-21)
[2019-11-13] MEDS: HYDROcodone/ACETAMIN 5-325 MG TAB (NORCO/ VICODIN) PO PRN (07:13)
[2019-11-13 07:25] LABS: ALANINE AMINOTRANSFERASE 25 U/L (12-78); ANION GAP 9 (5-15); ASPARTATE AMINOTRANSFERASE 16 U/L (10-37); CALCIUM 8.6 mg/dL (8.4-11.0); CHLORIDE 98 mmol/L (98-107); CREATININE 0.85 mg/dL (0.55-1.30); GLUCOSE 89 mg/dL (70-99); SODIUM SERUM 140 mmol/L (136-145); TOTAL BILIRUBIN 0.9 mg/dL (0.0-1.0)
[2019-11-13] MEDS: IPRATROPIUM BROM 0.5 MG/2.5 ML VIAL.NEB (ATROVENT) INH SCH ×4 (08:43→19:55)
[2019-11-13] MEDS ORDERED: PREDNISONE 20 MG TABLET PO SCH (09:00)
[2019-11-13] MEDS ORDERED: PANTOPRAZOLE SODIUM 40 MG TAB PO SCH (09:00)
[2019-11-13] MEDS ORDERED: FUROSEMIDE 20 MG TABLET PO SCH (09:00)
[2019-11-13] MEDS ORDERED: DILTIAZEM HCL 240 MG CAP.SR.24H PO SCH (09:00)
[2019-11-13] MEDS ORDERED: amLODIPine BESYLATE 5 MG TABLET PO SCH (09:00)
[2019-11-13] MEDS ORDERED: ATORVASTATIN 20 MG TABLET PO SCH (09:00)
--- NOTE | 2019-11-13 09:03 | NUR ---
CONSULT ID CELLULITIS DR COUCH [phone] DR ODEN TECHNICAL SERVICES REPRESENTATIVE S/[facility]
[2019-11-13] MEDS: METOPROLOL TARTRATE 25 MG TABLET PO SCH ×2 (09:53→20:46)
[2019-11-13] MEDS: APIXABAN 2.5 MG TABLET PO SCH ×2 (09:58→20:48)
[2019-11-13] MEDS ORDERED: VANCOMYCIN HCL 1,000 MG in NS 250 ML IV SCH (10:00)
--- NOTE | 2019-11-13 10:26 | NUR ---
Patient A&O x4. Pain in her left upper leg and left lower extremity with movement. Will wait to see if wound care nurse comes prior to changing dressing or will have night shift supervisor change dressing. Patient denies any SOB. Medications given and patient is resting.
--- NOTE | 2019-11-13 10:45 | NUR ---
Nutrition Update Marco Scale 17 noted. Pt admitted for cellulitis. Diet: cardiac BMI: 33.8 kg/m2 RD to follow per nutrition care standards.
[2019-11-13 12:35] VITALS: BP_SYST 137
--- NOTE | 2019-11-13 14:44 | NUR ---
Dietitian Recommendations * Recommend continuing cardiac diet * Encourage increase PO intakes * Snacks BID TU, SYD Please refer to Nutrition Assessment for details. Addendum: 11/13/19 at [address] Amended: Links added.
[2019-11-13 16:48] VITALS: BP_SYST 108
--- NOTE | 2019-11-13 18:14 | NUR ---
PATIENT STABLE AND COMFORTABLE. WAITING ON DINNER. IV STILL PATENT.
[2019-11-13 19:30] VITALS: BP_SYST 156
--- NOTE | 2019-11-13 19:30 | NUR ---
INITIAL NOTES PATIENT IS STABLE SITTING ON THE SIDE OF THE BED. NO S/S OF RESPIRATORY DISTRESS. PLAN OF CARE IS DISCUSSED WITH PATIENT. PATIENT SUCCESSFULLY DEMONSTRATES USAGE OF CALL LIGHT AT THIS TIME. BED IS LOCKED AND AT THE LOWEST POSITION. PATIENT REFUSED BED ALARM, DESPITE EDUCATIONAL EFFORTS. FALL, SAFETY, ASPIRATION, AND RESPIRATORY PRECAUTIONS WILL BE IN PLACE THROUGHOUT THE SHIFT.
[2019-11-13] MEDS ORDERED: PREGABALIN 75 MG CAPSULE (LYRICA) PO SCH (21:00)
--- NOTE | 2019-11-13 21:00 | NUR ---
PATIENT WANTED TO LEAVE AMA, DESPITE EDUCATIONAL EFFORTS. EDUCATED PATIENT WITH CHARGE NURSE BY BEDSIDE ABOUT CONTINUATION OF CARE. PATIENT STILL STATED SHE WILL LEAVE AMA. STACK SUPERVISOR AND SECURITY WILL BE MADE AWARE.
--- NOTE | 2019-11-13 21:06 | NUR ---
PAGED I PAGED DR. BEE I SPOKE WITH MARLIN BARAHONA
--- NOTE | 2019-11-13 21:15 | NUR ---
DR. BEE MADE AWARE THAT PT WANTED TO LEAVE AMA.
--- NOTE | 2019-11-13 21:32 | NUR ---
PATIENT HAS LEFT THE HOSPITAL AGAINST MEDICAL ADVICE AT THIS TIME.
--- NOTE | 2019-11-13 21:43 | NUR ---
DR. MYERS CONSULT: I CALLED TO CANCELLED CONSULT FOR DR MYERS REASON PATIENT WHEN AMA.
== END 2019-11-13 21:32 | disposition left against medical advice (07) | DRG 872 ==
LOC: SED 17:07 → SMU 19:42
PROVIDERS: ADMIT Internal Medicine Hospice and Palliative Medicine; ATTEND Internal Medicine Hospice and Palliative Medicine
DX: A41.9 Sepsis, unspecified organism (principal); L03.116 Cellulitis of left lower limb; M19.90 Unspecified osteoarthritis, unspecified site; E78.5 Hyperlipidemia, unspecified; G62.9 Polyneuropathy, unspecified; I11.0 Hypertensive heart disease with heart failure; I48.91 Unspecified atrial fibrillation; I50.9 Heart failure, unspecified; J44.9 Chronic obstructive pulmonary disease, unspecified; J61 Pneumoconiosis due to asbestos and other mineral fibers; Z53.29 Procedure and treatment not carried out because of patient's decision for other reasons; Z77.090 Contact with and (suspected) exposure to asbestos; Z79.01 Long term (current) use of anticoagulants; Z82.49 Family history of ischemic heart disease and other diseases of the circulatory system; Z86.718 Personal history of other venous thrombosis and embolism; Z87.891 Personal history of nicotine dependence; Z79.899 Other long term (current) drug therapy; Z88.8 Allergy status to other drugs, medicaments and biological substances
CPT/HCPCS: 36415; 80053; 81000-TC; 83605; 85025; 87040-TC; 87070-TC; 87186-TC; 94640; 94760; 96365; 99285; J0696; J2543; J3370; J7050; J7060; J7512

== ENCOUNTER 2020-02-04 17:43 | Inpatient (IN) | payer OTHER, SELFPAY ==
[~2020-02-04] VITALS: Ht 154.9 cm; Wt 88.9 kg
[2020-02-04 18:05] VITALS: BP_SYST 127
[2020-02-04 19:50] LABS: HEMOGLOBIN 12.8 g/dL (12.0-16.0); LYMPHOCYTES # (AUTO) 0.4 K/uL (1.0-5.5); MEAN CORPUSCULAR HGB CONC 30 % (32-36); MONOCYTES # (AUTO) 1.3 K/uL (0.0-1.0); NEUTROPHILS # (AUTO) 13.3 K/uL (1.8-7.7); RED CELL DISTRIBUTION WIDTH 22.4 % (9.0-15.0); WHITE BLOOD COUNT (AUTO) 15.1 K/uL (4.8-10.8)
[2020-02-04 19:52] LABS: BASOPHILS # (AUTO) 0.1 K/uL (0.0-0.2); BASOPHILS % (AUTO) 0.4 % (0.0-2.0); HEMATOCRIT 42.4 % (36-48); LYMPHOCYTES % (AUTO) 2.9 % (20.5-51.5); MEAN CORPUSCULAR HEMOGLOBIN 25 pg (27-31); MEAN CORPUSCULAR VOLUME 82 fL (79.0-98.0); MONOCYTES % (AUTO) 8.3 % (1.7-9.3); NEUTROPHILS % (AUTO) 88.4 % (40.0-70.0); PLATELET COUNT (AUTO) 373 K/uL (130-430)
[2020-02-04] MEDS ORDERED: KETOROLAC TROMETHAMINE 60 MG/2 ML VIAL IM ONE (20:00)
[2020-02-04 20:02] LABS: ALANINE AMINOTRANSFERASE 33 U/L (12-78); ALBUMIN 3.9 g/dL (3.4-4.8); ANION GAP 9 (5-15); ASPARTATE AMINOTRANSFERASE 18 U/L (10-37); CALCIUM 9.8 mg/dL (8.4-11.0); CHLORIDE 98 mmol/L (98-107); CREATININE 0.97 mg/dL (0.55-1.30); GLUCOSE 150 mg/dL (70-99); POTASSIUM 4.2 mmol/L (3.5-5.1); SODIUM SERUM 136 mmol/L (136-145); UREA NITROGEN, BLOOD 19 mg/dL (8-21)
[2020-02-04] MEDS ORDERED: ALBUTEROL MDI INHALATION 8 GM INH INH ONE (20:15)
[2020-02-04] MEDS ORDERED: methylPREDNISolone SOD SUCC/PF 62.5 MG/ML VIAL IVP ONE (20:15)
[2020-02-04] MEDS ORDERED: VANCOMYCIN HCL 1,000 MG in NS 250 ML IV ONE (22:30)
[2020-02-04] MEDS ORDERED: MEROPENEM 500 MG in NS 50 ML IV ONE (22:30)
[2020-02-04] MEDS ORDERED: MEROPENEM 500 MG VIAL IV ONE (23:27)
[2020-02-04] MEDS ORDERED: VANCOMYCIN HCL 1000 MG/VIAL IV ONE (23:27)
[2020-02-04] MEDS ORDERED: ACETAMINOPHEN 500 MG TABLET PO ONE (23:30)
[2020-02-05 00:01] LABS: BILIRUBIN,URINE NEGATIVE (NEGATIVE); BLOOD, URINE 1+ (NEGATIVE); CLARITY/URINE CLEAR (CLEAR); COLOR,URINE YELLOW (YELLOW); GLUCOSE,URINE NEGATIVE (NEGATIVE); KETONES,URINE NEGATIVE (NEGATIVE); LEUKOCYTE ESTERASE ,URINE NEGATIVE (NEGATIVE); NITRITE, URINE NEGATIVE (NEGATIVE); PROTEIN URINE 1+ (NEGATIVE); UROBILINOGEN,URINE 0.2 (0.2-1.0)
[2020-02-05 00:21] LABS: BACTERIA,URINE FEW /HPF (None Seen); CALCIUM OXALATE CRYSTALS,UR 30-50 /HPF (None Seen); WBC,URINE 0-3 /HPF (0-3)
[2020-02-05] MEDS ORDERED: cefTRIAXone 1 GM IVPB PREMIX 50 ML IV SCH (02:15)
[2020-02-05] MEDS ORDERED: ALBUTEROL MDI INHALATION 8 GM INH INH PRN (02:30)
[2020-02-05] MEDS ORDERED: BUDESONIDE/FORMOTEROL 160-4.5 mCg, 6 GM INHALER INH PRN (02:30)
[2020-02-05 03:07] LABS: ALANINE AMINOTRANSFERASE 33 U/L (12-78); ALBUMIN 3.6 g/dL (3.4-4.8); ANION GAP 6 (5-15); ASPARTATE AMINOTRANSFERASE 19 U/L (10-37); CALCIUM 9.9 mg/dL (8.4-11.0); CHLORIDE 98 mmol/L (98-107); CREATININE 0.89 mg/dL (0.55-1.30); GLUCOSE 127 mg/dL (70-99); POTASSIUM 4.6 mmol/L (3.5-5.1); SODIUM SERUM 135 mmol/L (136-145); UREA NITROGEN, BLOOD 22 mg/dL (8-21)
[2020-02-05] MEDS ORDERED: LEVOFLOXACIN 500 MG/D5W 100 ML IV ONE (04:30)
[2020-02-05] MEDS: HYDROcodone/ACETAMIN 5-325 MG TAB (NORCO/ VICODIN) PO PRN ×3 (05:12→13:51)
[2020-02-05] MEDS: cefTRIAXone 1 GM IVPB PREMIX 50 ML IV SCH (05:14)
[2020-02-05] MEDS ORDERED: methylPREDNISolone SOD SUCC/PF 62.5 MG/ML VIAL ONE (06:37)
[2020-02-05] MEDS: IPRATROPIUM BROM 0.5 MG/2.5 ML VIAL.NEB (ATROVENT) INH SCH ×3 (07:20→20:39)
[2020-02-05 08:14] LABS: BASOPHILS # (AUTO) 0.1 K/uL (0.0-0.2); BASOPHILS % (AUTO) 0.4 % (0.0-2.0); EOSINOPHILS % (AUTO) 0.3 % (0.0-4.0); HEMATOCRIT 41.9 % (36-48); HEMOGLOBIN 13.1 g/dL (12.0-16.0); LYMPHOCYTES # (AUTO) 1.6 K/uL (1.0-5.5); LYMPHOCYTES % (AUTO) 10.9 % (20.5-51.5); MEAN CORPUSCULAR HEMOGLOBIN 25 pg (27-31); MEAN CORPUSCULAR HGB CONC 31 % (32-36); MEAN CORPUSCULAR VOLUME 82 fL (79.0-98.0); MONOCYTES # (AUTO) 1.5 K/uL (0.0-1.0); MONOCYTES % (AUTO) 10.8 % (1.7-9.3); NEUTROPHILS # (AUTO) 11.1 K/uL (1.8-7.7); NEUTROPHILS % (AUTO) 77.6 % (40.0-70.0); PLATELET COUNT (AUTO) 367 K/uL (130-430); RED BLOOD CELL COUNT(AUTO) 5.14 MIL/uL (4.2-6.2); RED CELL DISTRIBUTION WIDTH 21.7 % (9.0-15.0); WHITE BLOOD COUNT (AUTO) 14.3 K/uL (4.8-10.8)
[2020-02-05] MEDS ORDERED: DILTIAZEM HCL 25 MG/5 ML VIAL IVP ONE (08:15)
[2020-02-05] MEDS ORDERED: DILTIAZEM HCL 25 MG/5 ML VIAL ONE ×3 (08:27→18:50)
[2020-02-05] MEDS ORDERED: PREDNISONE 20 MG TABLET PO SCH (09:00)
[2020-02-05] MEDS ORDERED: FUROSEMIDE 20 MG TABLET PO SCH (09:00)
[2020-02-05] MEDS ORDERED: TIOTROPIUM BROMIDE 18 mcg/INHALATION (CAPSULE) INH SCH (09:00)
[2020-02-05] MEDS: ALBUTEROL SULFATE 0.083% 2.5 MG/3 ML VIAL.NEB INH PRN ×3 (09:00→20:39)
[2020-02-05] MEDS: BUDESONIDE 0.5 MG/2 ML AMPUL.NEB INH PRN ×2 (09:01→20:39)
[2020-02-05] MEDS: VITAMIN B COMPLEX WITH C TAB/CAP PO SCH (09:09)
[2020-02-05] MEDS: DILTIAZEM HCL 240 MG CAP.SR.24H PO SCH (09:11)
[2020-02-05] MEDS: APIXABAN 2.5 MG TABLET PO SCH (09:12)
[2020-02-05] MEDS: ATORVASTATIN 20 MG TABLET PO SCH (09:15)
[2020-02-05] MEDS: PANTOPRAZOLE SODIUM 40 MG TAB PO SCH (09:19)
[2020-02-05] MEDS: METOPROLOL TARTRATE 25 MG TABLET PO SCH (09:19)
[2020-02-05] MEDS: amLODIPine BESYLATE 5 MG TABLET PO SCH (09:21)
[2020-02-05] MEDS: CHOLECALCIFEROL (VITAMIN D3) 2,000 UNIT TABLET PO SCH (09:23)
[2020-02-05] MEDS ORDERED: HYDROcodone/ACETAMIN 5-325 MG TAB (NORCO/ VICODIN) ONE (09:48)
[2020-02-05] MEDS ORDERED: FUROSEMIDE 20 MG TABLET PO ONE (10:00)
[2020-02-05] MEDS ORDERED: methylPREDNISolone SOD SUCC/PF 62.5 MG/ML VIAL IVP ONE (10:00)
[2020-02-05] MEDS ORDERED: IPRATROPIUM BROM 0.5 MG/2.5 ML VIAL.NEB (ATROVENT) INH SCH (13:00)
[2020-02-05] MEDS: MORPHINE 4 MG/ML INJ. SYRINGE IVP PRN ×3 (13:20→20:50)
[2020-02-05] MEDS: DILTIAZEM HCL 25 MG/5 ML VIAL IVP PRN ×2 (14:00→18:40)
[2020-02-05] MEDS ORDERED: MORPHINE 2 MG/ML INJ. SYRINGE ONE (17:37)
[2020-02-05] MEDS ORDERED: MORPHINE 4 MG/ML INJ. SYRINGE ONE (21:10)
[2020-02-06 00:25] VITALS: BP_SYST 158
[2020-02-06] MEDS: PREGABALIN 75 MG CAPSULE (LYRICA) PO SCH ×2 (00:39→21:23)
[2020-02-06] MEDS: METOPROLOL TARTRATE 25 MG TABLET PO SCH ×3 (00:40→21:25)
[2020-02-06] MEDS: FUROSEMIDE 20 MG TABLET PO SCH ×3 (00:40→21:24)
[2020-02-06] MEDS: methylPREDNISolone SOD SUCC/PF 62.5 MG/ML VIAL IVP SCH ×4 (00:41→21:25)
[2020-02-06] MEDS: APIXABAN 2.5 MG TABLET PO SCH ×3 (00:42→21:22)
[2020-02-06] MEDS: IPRATROPIUM BROM 0.5 MG/2.5 ML VIAL.NEB (ATROVENT) INH SCH ×4 (01:21→19:55)
[2020-02-06] MEDS ORDERED: IPRATROPIUM BROM 0.5 MG/2.5 ML VIAL.NEB (ATROVENT) INH ONE (01:25)
[2020-02-06] MEDS: MORPHINE 4 MG/ML INJ. SYRINGE IVP PRN ×4 (01:34→23:13)
[2020-02-06] MEDS: HYDROcodone/ACETAMIN 5-325 MG TAB (NORCO/ VICODIN) PO PRN ×3 (01:34→14:29)
[2020-02-06 01:55] VITALS: BP_SYST 158
[2020-02-06] MEDS ORDERED: LEVOFLOXACIN 250 MG/D5W 50 ML IV ONE (03:55)
[2020-02-06] MEDS ORDERED: cefTRIAXone 1 GM IVPB PREMIX 50 ML IV ONE (03:56)
[2020-02-06] MEDS: cefTRIAXone 1 GM IVPB PREMIX 50 ML IV SCH (04:08)
[2020-02-06] MEDS: LEVOFLOXACIN 250 MG/D5W 50 ML IV SCH (05:15)
[2020-02-06] MEDS: ALBUTEROL SULFATE 0.083% 2.5 MG/3 ML VIAL.NEB INH PRN ×2 (07:10→23:00)
[2020-02-06] MEDS: BUDESONIDE 0.5 MG/2 ML AMPUL.NEB INH PRN (07:12)
[2020-02-06 07:16] LABS: BASOPHILS % (AUTO) 0.3 % (0.0-2.0); EOSINOPHILS % (AUTO) 0.1 % (0.0-4.0); HEMATOCRIT 36.9 % (36-48); HEMOGLOBIN 11.4 g/dL (12.0-16.0); LYMPHOCYTES # (AUTO) 0.4 K/uL (1.0-5.5); LYMPHOCYTES % (AUTO) 3.5 % (20.5-51.5); MEAN CORPUSCULAR HEMOGLOBIN 25 pg (27-31); MEAN CORPUSCULAR HGB CONC 31 % (32-36); MEAN CORPUSCULAR VOLUME 80 fL (79.0-98.0); MONOCYTES # (AUTO) 0.9 K/uL (0.0-1.0); MONOCYTES % (AUTO) 8.6 % (1.7-9.3); NEUTROPHILS # (AUTO) 8.8 K/uL (1.8-7.7); NEUTROPHILS % (AUTO) 87.5 % (40.0-70.0); PLATELET COUNT (AUTO) 290 K/uL (130-430); RED BLOOD CELL COUNT(AUTO) 4.59 MIL/uL (4.2-6.2); WHITE BLOOD COUNT (AUTO) 10.1 K/uL (4.8-10.8)
[2020-02-06 07:32] LABS: ALANINE AMINOTRANSFERASE 31 U/L (12-78); ALBUMIN 3.3 g/dL (3.4-4.8); ANION GAP 7 (5-15); ASPARTATE AMINOTRANSFERASE 24 U/L (10-37); CALCIUM 8.9 mg/dL (8.4-11.0); CHLORIDE 90 mmol/L (98-107); CREATININE 0.76 mg/dL (0.55-1.30); GLUCOSE 170 mg/dL (70-99); POTASSIUM 4.2 mmol/L (3.5-5.1); SODIUM SERUM 129 mmol/L (136-145); UREA NITROGEN, BLOOD 22 mg/dL (8-21)
[2020-02-06 08:00] VITALS: BP_SYST 141
[2020-02-06] MEDS: CHOLECALCIFEROL (VITAMIN D3) 2,000 UNIT TABLET PO SCH (08:12)
[2020-02-06] MEDS: ATORVASTATIN 20 MG TABLET PO SCH (08:13)
[2020-02-06] MEDS: DILTIAZEM HCL 240 MG CAP.SR.24H PO SCH (08:13)
[2020-02-06] MEDS: PANTOPRAZOLE SODIUM 40 MG TAB PO SCH (08:14)
[2020-02-06] MEDS: amLODIPine BESYLATE 5 MG TABLET PO SCH (08:15)
[2020-02-06] MEDS: CALCITONIN SALMON,SYNTHETIC 3.7 ML SPRAY.PUMP NS SCH (09:00)
[2020-02-06] MEDS ORDERED: CALCIUM CARBONATE/VITAMIN D3 1 TAB TABLET PO SCH (09:00)
[2020-02-06] MEDS: VITAMIN B COMPLEX WITH C TAB/CAP PO SCH (09:13)
[2020-02-06] MEDS ORDERED: LIDOCAINE PATCH 5% 1 EA TP ONE (09:15)
[2020-02-06] MEDS ORDERED: FUROSEMIDE 40 MG/4 ML VIAL IVP ONE (10:00)
[2020-02-06 12:00] VITALS: BP_SYST 136
[2020-02-06 17:08] VITALS: BP_SYST 142
[2020-02-06 20:00] VITALS: BP_SYST 146
[2020-02-06] MEDS: CALCIUM CARBONATE/VITAMIN D3 1 TAB TABLET PO SCH (21:23)
[2020-02-07 00:48] VITALS: BP_SYST 166
[2020-02-07] MEDS: cefTRIAXone 1 GM IVPB PREMIX 50 ML IV SCH (04:05)
[2020-02-07] MEDS: MORPHINE 4 MG/ML INJ. SYRINGE IVP PRN ×3 (04:19→17:46)
[2020-02-07] MEDS: LEVOFLOXACIN 250 MG/D5W 50 ML IV SCH (05:32)
[2020-02-07] MEDS: methylPREDNISolone SOD SUCC/PF 62.5 MG/ML VIAL IVP SCH ×3 (05:32→22:00)
[2020-02-07] MEDS: IPRATROPIUM BROM 0.5 MG/2.5 ML VIAL.NEB (ATROVENT) INH SCH ×3 (06:00→19:40)
[2020-02-07 07:39] LABS: BASOPHILS % (AUTO) 0.1 % (0.0-2.0); HEMATOCRIT 38.4 % (36-48); HEMOGLOBIN 12.1 g/dL (12.0-16.0); LYMPHOCYTES # (AUTO) 0.3 K/uL (1.0-5.5); LYMPHOCYTES % (AUTO) 2.6 % (20.5-51.5); MEAN CORPUSCULAR HEMOGLOBIN 25 pg (27-31); MEAN CORPUSCULAR HGB CONC 32 % (32-36); MEAN CORPUSCULAR VOLUME 80 fL (79.0-98.0); MONOCYTES # (AUTO) 1.2 K/uL (0.0-1.0); MONOCYTES % (AUTO) 9.6 % (1.7-9.3); NEUTROPHILS # (AUTO) 10.8 K/uL (1.8-7.7); NEUTROPHILS % (AUTO) 87.7 % (40.0-70.0); PLATELET COUNT (AUTO) 297 K/uL (130-430); RED BLOOD CELL COUNT(AUTO) 4.83 MIL/uL (4.2-6.2); RED CELL DISTRIBUTION WIDTH 21.8 % (9.0-15.0); WHITE BLOOD COUNT (AUTO) 12.3 K/uL (4.8-10.8)
[2020-02-07 08:00] VITALS: BP_SYST 171
[2020-02-07] MEDS: LIDOCAINE PATCH 5% 1 EA TP SCH (08:24)
[2020-02-07] MEDS: DILTIAZEM HCL 240 MG CAP.SR.24H PO SCH (08:25)
[2020-02-07] MEDS: METOPROLOL TARTRATE 25 MG TABLET PO SCH ×2 (08:25→20:32)
[2020-02-07] MEDS: CHOLECALCIFEROL (VITAMIN D3) 2,000 UNIT TABLET PO SCH (08:25)
[2020-02-07] MEDS: PANTOPRAZOLE SODIUM 40 MG TAB PO SCH (08:26)
[2020-02-07] MEDS: VITAMIN B COMPLEX WITH C TAB/CAP PO SCH (08:26)
[2020-02-07] MEDS: CALCIUM CARBONATE/VITAMIN D3 1 TAB TABLET PO SCH ×2 (08:26→20:33)
[2020-02-07] MEDS: amLODIPine BESYLATE 5 MG TABLET PO SCH (08:26)
[2020-02-07] MEDS: FUROSEMIDE 20 MG TABLET PO SCH ×2 (08:27→20:33)
[2020-02-07] MEDS: ATORVASTATIN 20 MG TABLET PO SCH (08:27)
[2020-02-07] MEDS: APIXABAN 2.5 MG TABLET PO SCH ×2 (08:28→20:35)
[2020-02-07] MEDS: CALCITONIN SALMON,SYNTHETIC 3.7 ML SPRAY.PUMP NS SCH (09:00)
[2020-02-07] MEDS: ALBUTEROL SULFATE 0.083% 2.5 MG/3 ML VIAL.NEB INH PRN ×2 (11:49→17:28)
[2020-02-07] MEDS: HYDROcodone/ACETAMIN 5-325 MG TAB (NORCO/ VICODIN) PO PRN (19:48)
[2020-02-07 20:00] VITALS: BP_SYST 144
[2020-02-07] MEDS: PREGABALIN 75 MG CAPSULE (LYRICA) PO SCH (20:32)
[2020-02-08] VITALS: BP_SYST 138
[2020-02-08] MEDS: IPRATROPIUM BROM 0.5 MG/2.5 ML VIAL.NEB (ATROVENT) INH SCH ×3 (01:00→13:28)
[2020-02-08] MEDS: HYDROcodone/ACETAMIN 5-325 MG TAB (NORCO/ VICODIN) PO PRN ×2 (03:34→11:13)
[2020-02-08] MEDS: cefTRIAXone 1 GM IVPB PREMIX 50 ML IV SCH (03:34)
[2020-02-08] MEDS: LEVOFLOXACIN 250 MG/D5W 50 ML IV SCH (04:39)
[2020-02-08] MEDS: methylPREDNISolone SOD SUCC/PF 62.5 MG/ML VIAL IVP SCH ×3 (05:55→21:35)
[2020-02-08 08:20] VITALS: BP_SYST 149
[2020-02-08] MEDS: MORPHINE 4 MG/ML INJ. SYRINGE IVP PRN ×3 (08:34→22:56)
[2020-02-08] MEDS: CALCITONIN SALMON,SYNTHETIC 3.7 ML SPRAY.PUMP NS SCH (09:00)
[2020-02-08] MEDS: METOPROLOL TARTRATE 25 MG TABLET PO SCH ×2 (09:05→21:34)
[2020-02-08] MEDS: CHOLECALCIFEROL (VITAMIN D3) 2,000 UNIT TABLET PO SCH (09:05)
[2020-02-08] MEDS: FUROSEMIDE 20 MG TABLET PO SCH ×2 (09:06→21:34)
[2020-02-08] MEDS: DILTIAZEM HCL 240 MG CAP.SR.24H PO SCH (09:06)
[2020-02-08] MEDS: APIXABAN 2.5 MG TABLET PO SCH ×2 (09:07→21:36)
[2020-02-08] MEDS: LIDOCAINE PATCH 5% 1 EA TP SCH (09:09)
[2020-02-08] MEDS: amLODIPine BESYLATE 5 MG TABLET PO SCH (09:09)
[2020-02-08] MEDS: ATORVASTATIN 20 MG TABLET PO SCH (09:09)
[2020-02-08] MEDS: PANTOPRAZOLE SODIUM 40 MG TAB PO SCH (09:11)
[2020-02-08] MEDS: VITAMIN B COMPLEX WITH C TAB/CAP PO SCH (10:13)
[2020-02-08] MEDS: CALCIUM CARBONATE/VITAMIN D3 1 TAB TABLET PO SCH ×2 (10:16→21:33)
[2020-02-08 12:39] VITALS: BP_SYST 142
[2020-02-08 16:44] VITALS: BP_SYST 151
[2020-02-08 20:00] VITALS: BP_SYST 148
[2020-02-08] MEDS: PREGABALIN 75 MG CAPSULE (LYRICA) PO SCH (21:35)
[2020-02-09] VITALS (7 sets, daily range): BP systolic 134–155
[2020-02-09] MEDS: HYDROcodone/ACETAMIN 5-325 MG TAB (NORCO/ VICODIN) PO PRN ×2 (02:05→08:18)
[2020-02-09] MEDS: cefTRIAXone 1 GM IVPB PREMIX 50 ML IV SCH (03:37)
[2020-02-09] MEDS: LEVOFLOXACIN 250 MG/D5W 50 ML IV SCH (04:21)
[2020-02-09] MEDS: MORPHINE 4 MG/ML INJ. SYRINGE IVP PRN ×3 (04:22→21:52)
[2020-02-09] MEDS: methylPREDNISolone SOD SUCC/PF 62.5 MG/ML VIAL IVP SCH ×3 (05:51→21:38)
[2020-02-09] MEDS: ALBUTEROL SULFATE 0.083% 2.5 MG/3 ML VIAL.NEB INH PRN ×3 (07:20→17:48)
[2020-02-09] MEDS: BUDESONIDE 0.5 MG/2 ML AMPUL.NEB INH PRN (07:20)
[2020-02-09] MEDS: IPRATROPIUM BROM 0.5 MG/2.5 ML VIAL.NEB (ATROVENT) INH SCH ×4 (07:20→19:45)
[2020-02-09] MEDS: ATORVASTATIN 20 MG TABLET PO SCH (08:16)
[2020-02-09] MEDS: PANTOPRAZOLE SODIUM 40 MG TAB PO SCH (08:16)
[2020-02-09] MEDS: METOPROLOL TARTRATE 25 MG TABLET PO SCH ×2 (08:17→20:19)
[2020-02-09] MEDS: CHOLECALCIFEROL (VITAMIN D3) 2,000 UNIT TABLET PO SCH (08:17)
[2020-02-09] MEDS: DILTIAZEM HCL 240 MG CAP.SR.24H PO SCH (08:18)
[2020-02-09] MEDS: APIXABAN 2.5 MG TABLET PO SCH ×2 (08:20→20:18)
[2020-02-09] MEDS: amLODIPine BESYLATE 5 MG TABLET PO SCH (08:21)
[2020-02-09] MEDS: CALCIUM CARBONATE/VITAMIN D3 1 TAB TABLET PO SCH ×2 (08:21→20:18)
[2020-02-09] MEDS: FUROSEMIDE 20 MG TABLET PO SCH ×2 (08:21→20:19)
[2020-02-09] MEDS: VITAMIN B COMPLEX WITH C TAB/CAP PO SCH (08:24)
[2020-02-09] MEDS: LIDOCAINE PATCH 5% 1 EA TP SCH (08:25)
[2020-02-09] MEDS: CALCITONIN SALMON,SYNTHETIC 3.7 ML SPRAY.PUMP NS SCH (08:29)
[2020-02-09] MEDS ORDERED: SILVER 44.4 ML GEL.ER.ML. TP ONE (18:45)
[2020-02-09] MEDS: PREGABALIN 75 MG CAPSULE (LYRICA) PO SCH (20:20)
[2020-02-10 01:09] VITALS: BP_SYST 141
[2020-02-10] MEDS: cefTRIAXone 1 GM IVPB PREMIX 50 ML IV SCH (03:52)
[2020-02-10] MEDS: LEVOFLOXACIN 250 MG/D5W 50 ML IV SCH (04:18)
[2020-02-10] MEDS: methylPREDNISolone SOD SUCC/PF 62.5 MG/ML VIAL IVP SCH ×2 (05:25→13:43)
[2020-02-10] MEDS: MORPHINE 4 MG/ML INJ. SYRINGE IVP PRN ×3 (06:14→16:43)
[2020-02-10] MEDS: IPRATROPIUM BROM 0.5 MG/2.5 ML VIAL.NEB (ATROVENT) INH SCH ×4 (07:19→19:29)
[2020-02-10] MEDS: BUDESONIDE 0.5 MG/2 ML AMPUL.NEB INH PRN ×2 (07:19→19:30)
[2020-02-10 09:40] VITALS: BP_SYST 156
[2020-02-10] MEDS: PANTOPRAZOLE SODIUM 40 MG TAB PO SCH (09:46)
[2020-02-10] MEDS: LIDOCAINE PATCH 5% 1 EA TP SCH (09:46)
[2020-02-10] MEDS: ATORVASTATIN 20 MG TABLET PO SCH (09:46)
[2020-02-10] MEDS: CHOLECALCIFEROL (VITAMIN D3) 2,000 UNIT TABLET PO SCH (09:47)
[2020-02-10] MEDS: METOPROLOL TARTRATE 25 MG TABLET PO SCH ×2 (09:53→20:42)
[2020-02-10] MEDS: DILTIAZEM HCL 240 MG CAP.SR.24H PO SCH (09:53)
[2020-02-10] MEDS: amLODIPine BESYLATE 5 MG TABLET PO SCH (09:54)
[2020-02-10] MEDS: APIXABAN 2.5 MG TABLET PO SCH ×2 (09:55→20:41)
[2020-02-10] MEDS: VITAMIN B COMPLEX WITH C TAB/CAP PO SCH (10:18)
[2020-02-10] MEDS: FUROSEMIDE 20 MG TABLET PO SCH ×2 (10:19→20:43)
[2020-02-10] MEDS: ALBUTEROL SULFATE 0.083% 2.5 MG/3 ML VIAL.NEB INH PRN ×2 (11:24→19:30)
[2020-02-10 12:21] VITALS: BP_SYST 156
[2020-02-10] MEDS: HYDROcodone/ACETAMIN 5-325 MG TAB (NORCO/ VICODIN) PO PRN ×2 (13:43→18:46)
[2020-02-10] MEDS: CALCIUM CARBONATE/VITAMIN D3 1 TAB TABLET PO SCH ×2 (16:42→20:41)
[2020-02-10] MEDS: CALCITONIN SALMON,SYNTHETIC 3.7 ML SPRAY.PUMP NS SCH (16:42)
[2020-02-10] MEDS: SILVER 44.4 ML GEL.ER.ML. TP SCH (16:54)
[2020-02-10 17:21] VITALS: BP_SYST 156
[2020-02-10 20:00] VITALS: BP_SYST 157
[2020-02-10] MEDS: PREGABALIN 75 MG CAPSULE (LYRICA) PO SCH (20:43)
[2020-02-11] MEDS: methylPREDNISolone SOD SUCC/PF 62.5 MG/ML VIAL IVP SCH ×3 (00:33→22:17)
[2020-02-11] MEDS: MORPHINE 4 MG/ML INJ. SYRINGE IVP PRN ×3 (00:46→14:00)
[2020-02-11 01:37] VITALS: BP_SYST 150
[2020-02-11] MEDS: HYDROcodone/ACETAMIN 5-325 MG TAB (NORCO/ VICODIN) PO PRN (02:05)
[2020-02-11] MEDS: DILTIAZEM HCL 25 MG/5 ML VIAL IVP PRN (02:06)
[2020-02-11] MEDS: IPRATROPIUM BROM 0.5 MG/2.5 ML VIAL.NEB (ATROVENT) INH SCH ×6 (02:45→23:02)
[2020-02-11 04:00] VITALS: BP_SYST 151
[2020-02-11] MEDS: cefTRIAXone 1 GM IVPB PREMIX 50 ML IV SCH (04:38)
[2020-02-11] MEDS: LEVOFLOXACIN 250 MG/D5W 50 ML IV SCH (04:39)
[2020-02-11 08:00] VITALS: BP_SYST 155
[2020-02-11] MEDS: ATORVASTATIN 20 MG TABLET PO SCH (08:43)
[2020-02-11] MEDS: CALCIUM CARBONATE/VITAMIN D3 1 TAB TABLET PO SCH ×2 (08:43→22:18)
[2020-02-11] MEDS: DILTIAZEM HCL 240 MG CAP.SR.24H PO SCH (08:43)
[2020-02-11] MEDS: CHOLECALCIFEROL (VITAMIN D3) 2,000 UNIT TABLET PO SCH (08:44)
[2020-02-11] MEDS: LIDOCAINE PATCH 5% 1 EA TP SCH (08:44)
[2020-02-11] MEDS: PANTOPRAZOLE SODIUM 40 MG TAB PO SCH (08:45)
[2020-02-11] MEDS: METOPROLOL TARTRATE 25 MG TABLET PO SCH ×2 (08:45→22:18)
[2020-02-11] MEDS ORDERED: LACTULOSE 20 GM/30 ML UDC PO ONE (08:45)
[2020-02-11] MEDS: FUROSEMIDE 20 MG TABLET PO SCH ×2 (08:47→22:18)
[2020-02-11] MEDS: amLODIPine BESYLATE 5 MG TABLET PO SCH (08:48)
[2020-02-11] MEDS: APIXABAN 2.5 MG TABLET PO SCH (08:51)
[2020-02-11] MEDS: VITAMIN B COMPLEX WITH C TAB/CAP PO SCH (09:08)
[2020-02-11] MEDS: SILVER 44.4 ML GEL.ER.ML. TP SCH (09:09)
[2020-02-11] MEDS: CALCITONIN SALMON,SYNTHETIC 3.7 ML SPRAY.PUMP NS SCH (09:10)
[2020-02-11 10:37] LABS: INR 1.1 (0.8-1.2); PROTHROMBIN TIME 10.6 SECS (9.5-12.5)
[2020-02-11 11:26] VITALS: BP_SYST 145
[2020-02-11 15:46] VITALS: BP_SYST 148
[2020-02-11 20:10] VITALS: BP_SYST 139
[2020-02-11] MEDS: ALBUTEROL SULFATE 0.083% 2.5 MG/3 ML VIAL.NEB INH PRN ×2 (20:22→23:02)
[2020-02-11] MEDS: PREGABALIN 75 MG CAPSULE (LYRICA) PO SCH (22:18)
[2020-02-12] MEDS: MORPHINE 4 MG/ML INJ. SYRINGE IVP PRN ×2 (01:34→14:19)
[2020-02-12 02:09] VITALS: BP_SYST 151
[2020-02-12] MEDS: methylPREDNISolone SOD SUCC/PF 62.5 MG/ML VIAL IVP SCH ×2 (05:46→14:18)
[2020-02-12] MEDS: LEVOFLOXACIN 250 MG/D5W 50 ML IV SCH (05:46)
[2020-02-12] MEDS: IPRATROPIUM BROM 0.5 MG/2.5 ML VIAL.NEB (ATROVENT) INH SCH ×2 (05:55→16:12)
[2020-02-12 07:06] LABS: ALANINE AMINOTRANSFERASE 57 U/L (12-78); ALBUMIN 3.7 g/dL (3.4-4.8); ANION GAP 11 (5-15); ASPARTATE AMINOTRANSFERASE 33 U/L (10-37); CREATININE 0.99 mg/dL (0.55-1.30); GLUCOSE 203 mg/dL (70-99); POTASSIUM 4.4 mmol/L (3.5-5.1); SODIUM SERUM 125 mmol/L (136-145); TOTAL BILIRUBIN 1.1 mg/dL (0.0-1.0); UREA NITROGEN, BLOOD 25 mg/dL (8-21)
[2020-02-12 08:00] VITALS: BP_SYST 131
[2020-02-12 08:31] LABS: CHLORIDE 84 mmol/L (98-107)
[2020-02-12 08:32] LABS: HEMATOCRIT 41.8 % (36-48); HEMOGLOBIN 12.9 g/dL (12.0-16.0); MEAN CORPUSCULAR HEMOGLOBIN 25 pg (27-31); MEAN CORPUSCULAR HGB CONC 31 % (32-36); MEAN CORPUSCULAR VOLUME 81 fL (79.0-98.0); PLATELET COUNT (AUTO) 243 K/uL (130-430); RED BLOOD CELL COUNT(AUTO) 5.17 MIL/uL (4.2-6.2)
[2020-02-12] MEDS: LIDOCAINE PATCH 5% 1 EA TP SCH (08:42)
[2020-02-12] MEDS: VITAMIN B COMPLEX WITH C TAB/CAP PO SCH (08:44)
[2020-02-12] MEDS: amLODIPine BESYLATE 5 MG TABLET PO SCH (08:44)
[2020-02-12] MEDS: ATORVASTATIN 20 MG TABLET PO SCH (08:44)
[2020-02-12] MEDS: FUROSEMIDE 20 MG TABLET PO SCH (08:45)
[2020-02-12] MEDS: PANTOPRAZOLE SODIUM 40 MG TAB PO SCH (08:46)
[2020-02-12] MEDS: CALCIUM CARBONATE/VITAMIN D3 1 TAB TABLET PO SCH (08:46)
[2020-02-12] MEDS: METOPROLOL TARTRATE 25 MG TABLET PO SCH (08:47)
[2020-02-12] MEDS: CALCITONIN SALMON,SYNTHETIC 3.7 ML SPRAY.PUMP NS SCH (08:48)
[2020-02-12] MEDS: SILVER 44.4 ML GEL.ER.ML. TP SCH (08:48)
[2020-02-12] MEDS ORDERED: CA/D1TAB7 PO (08:52)
[2020-02-12] MEDS ORDERED: DOXY-168 PO (08:52)
[2020-02-12] MEDS ORDERED: CALC3.8S NS (08:52)
[2020-02-12] MEDS ORDERED: MED4 PO (08:52)
[2020-02-12] MEDS ORDERED: ONDANSETRON HCL 4 MG/2 ML VIAL IVP PRN (11:00)
[2020-02-12 11:38] VITALS: BP_SYST 146
[2020-02-12] MEDS: CHOLECALCIFEROL (VITAMIN D3) 2,000 UNIT TABLET PO SCH (12:00)
[2020-02-12 14:42] LABS: ATYPICAL LYMPHOCYTES % 0 % (0-0); BAND % (MANUAL) 4 % (0-6); BASOPHILS % (MANUAL) 0 % (0-2); EOSINOPHILS % (MANUAL) 0 % (0-7); LYMPHOCYTES % (MANUAL) 2 % (20-46); MONOCYTES % (MANUAL) 12 % (0-11)
[2020-02-12] MEDS: DILTIAZEM HCL 240 MG CAP.SR.24H PO SCH (15:00)
[2020-02-12 15:28] VITALS: BP_SYST 137
[2020-02-12 16:47] VITALS: BP_SYST 137
== END 2020-02-12 17:56 | disposition home health service (06) | DRG 871 ==
LOC: SED 17:43 → STU 02-05 01:17
PROVIDERS: ADMIT Internal Medicine Hospice and Palliative Medicine; ATTEND Internal Medicine Hospice and Palliative Medicine
DX: A41.9 Sepsis, unspecified organism (principal); J18.9 Pneumonia, unspecified organism; J96.21 Acute and chronic respiratory failure with hypoxia; I50.33 Acute on chronic diastolic (congestive) heart failure; M80.08XA Age-related osteoporosis with current pathological fracture, vertebra(e), initial encounter for fracture; I48.20 Chronic atrial fibrillation, unspecified; J44.1 Chronic obstructive pulmonary disease with (acute) exacerbation; J44.0 Chronic obstructive pulmonary disease with (acute) lower respiratory infection; E87.2 Acidosis; E78.5 Hyperlipidemia, unspecified; I11.0 Hypertensive heart disease with heart failure; E66.9 Obesity, unspecified; G89.29 Other chronic pain; Z20.828 Contact with and (suspected) exposure to other viral communicable diseases; S81.801A Unspecified open wound, right lower leg, initial encounter; X58.XXXA Exposure to other specified factors, initial encounter; Y93.89 Activity, other specified; Y92.89 Other specified places as the place of occurrence of the external cause; Y99.8 Other external cause status; Z99.81 Dependence on supplemental oxygen; Z87.891 Personal history of nicotine dependence; Z86.718 Personal history of other venous thrombosis and embolism; Z90.710 Acquired absence of both cervix and uterus; Z82.49 Family history of ischemic heart disease and other diseases of the circulatory system; Z79.891 Long term (current) use of opiate analgesic; Z79.01 Long term (current) use of anticoagulants; Z88.1 Allergy status to other antibiotic agents; Z79.899 Other long term (current) drug therapy; Z79.52 Long term (current) use of systemic steroids; Z68.37 Body mass index [BMI] 37.0-37.9, adult
CPT/HCPCS: 36415; 36600; 71045; 72040-TC; 72080-TC; 80053; 81000-TC; 82803-TC; 83880; 84484; 85007; 85025; 85027; 85610-TC; 85730-TC; 87040-TC; 87081; 94640; 94760; 96365; 96366; 96367; 96372; 96375; 97110-GP; 97112-GP; 97530-GP; 99291; G0378; J0696; J1885; J1940; J1956; J2185; J2270; J2405; J2930; J3370; J3490; J7512; J7613; J7626; U0003-CS